=== PATIENT | male | born 2000 | race Caucasian/White ===

== ENCOUNTER 2019-08-28 20:12 | Emergency (ER) | payer OTHER, MEDICAID, SELFPAY ==
[2019-08-28 20:15] VITALS: BP 132/91; PULSE 72; RESP 20; TEMP 36.9; O2SAT 100
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
[2019-08-28] MEDS: Ondansetron O.D.T. 4 MG TABEF PO (20:39)
[2019-08-28] MEDS: Ibuprofen 600 MG TAB PO (20:40)
[2019-08-28] MEDS: Lidocaine/Epinephri/Tetracaine Topical Gel 3 ML TP (20:40)
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
[2019-08-28 21:37] VITALS: BP 132/91; PULSE 72; RESP 20; TEMP 36.9; O2SAT 100
== END 2019-08-28 21:38 | disposition home or self-care (01) ==
PROVIDERS: Emergency Provider Registered Nurse Emergency; PCP Nurse Practitioner Family
DX: S01.01XA Laceration without foreign body of scalp, initial encounter (principal); M25.561 Pain in right knee; S30.810A Abrasion of lower back and pelvis, initial encounter; S60.511A Abrasion of right hand, initial encounter; Y04.0XXA Assault by unarmed brawl or fight, initial encounter; R11.0 Nausea
CPT/HCPCS: 12001; 73562; 99284; 70450; 99283

== ENCOUNTER 2019-09-19 11:19 | Outpatient (REF) | payer OTHER, MEDICAID, SELFPAY ==
[2019-09-22 11:41] LABS: COVID-19 RT-PCR Result Not Detected (NotDetected)
== END 2019-09-19 11:39 ==
LOC: NCHCN 11:19
PROVIDERS: PCP Nurse Practitioner Family; Visit Provider Nurse Practitioner Family
DX: Z20.828 Contact with and (suspected) exposure to other viral communicable diseases (principal); R50.9 Fever, unspecified
CPT/HCPCS: U0003

== ENCOUNTER 2020-03-15 15:07 | Outpatient (REF) | payer MEDICAID, SELFPAY ==
[2020-03-18 17:41] LABS: Patient Race White; SARS-CoV-2 RNA Undetected (Undetected); SARS-CoV-2 Specimen Source Nasal
== END 2020-03-15 15:27 ==
LOC: NCHCN 15:07
PROVIDERS: PCP Nurse Practitioner Family; Visit Provider Nurse Practitioner Family
DX: R50.9 Fever, unspecified (principal)
CPT/HCPCS: U0003

== ENCOUNTER 2020-08-28 03:58 | Outpatient (CLI) | payer MEDICAID, SELFPAY ==
[2020-08-28 08:15] LABS: ALT 81 U/L (16-63); AST 25 U/L (15-37); Albumin 4.3 g/dL (3.4-5.0); Alkaline Phosphatase 65 U/L (46-116); BUN 16 mg/dL (7-18); Bilirubin, Total 0.6 mg/dL (0.2-1.0); CREATININE 0.8 mg/dL (0.70-1.30); Calcium 9.8 mg/dL (8.5-10.1); Chloride 102 mmol/L (98-107); Cholesterol 135 mg/dL (<200); Glucose 78 mg/dL (74-106); HDL Cholesterol 60 mg/dL (40-60); Potassium 4.6 mmol/L (3.5-5.1); Sodium 140 mmol/L (136-145); Total Protein 7.4 g/dL (6.4-8.2)
[2020-08-28 08:18] LABS: Triglyceride < 25 mg/dL (<150)
[2020-08-28 08:29] LABS: LDL CHOLESTEROL 71 mg/dL (<100)
== END 2020-08-28 03:59 | disposition home or self-care (01) ==
LOC: LBO 03:58
PROVIDERS: Internal Medicine Endocrinology, Diabetes & Metabolism; PCP Nurse Practitioner Family
DX: F64.0 Transsexualism (principal)
CPT/HCPCS: 36415; 80053; 80061; 83721

== ENCOUNTER 2021-01-15 15:43 | Outpatient (REF) | payer MEDICAID, SELFPAY ==
[2021-01-15 18:19] LABS: Abs Immature Grans 0.04 10^3/uL (0.0-0.06); Absolute Basophil Count 0.04 10^3/uL (0.0-0.2); Absolute Eosinophil Count 0.31 10^3/uL (0.0-0.7); Absolute Lymphocyte Count 2.16 10^3/uL (1.2-3.4); Absolute Monocyte Count 0.92 10^3/uL (0.1-0.8); Absolute Neutrophil Count 3.62 10^3/uL (1.2-6.7); Basophils % 0.6; Eosinophils % 4.4; HCT 35.7 % (40.0-50.0); HGB 12.9 g/dL (13.5-17.5); Immature Grans % 0.6; Lymphocytes % 30.5; MCH 33.3 pg (27.0-33.0); MCHC 36.1 % (32.0-36.0); MCV 92.2 fL (80-95); MPV 10.3 fL (8.0-11.0); Neutrophils % 50.9; Nucleated RBC 0 %; Platelet Count 167 10^3/uL (130-400); RBC 3.87 10^6/uL (4.36-5.78); RDW 12.4 % (11.8-14.1); RDW-SD 41.4 fL; WBC 7.09 10^3/uL (4.4-10.8)
[2021-01-15 18:41] LABS: Vitamin B12 582 pg/mL (193-986)
== END 2021-01-15 15:44 | disposition home or self-care (01) ==
LOC: LBN 15:43
PROVIDERS: PCP Nurse Practitioner Family; Visit Provider Nurse Practitioner Family
DX: F31.81 Bipolar II disorder (principal); F64.0 Transsexualism; Z59.9 Problem related to housing and economic circumstances, unspecified
CPT/HCPCS: 82607; 84443; 85025

== ENCOUNTER 2021-01-17 03:07 | Outpatient (CLI) | payer MEDICAID, SELFPAY ==
[2021-01-22 14:48] LABS: Testosterone, Total 383 ng/dL (240-950)
== END 2021-01-17 03:08 | disposition home or self-care (01) ==
LOC: LBO 03:07
PROVIDERS: PCP Nurse Practitioner Family; Visit Provider Internal Medicine Endocrinology, Diabetes & Metabolism
DX: F64.0 Transsexualism (principal)
CPT/HCPCS: 36415; 84403

== ENCOUNTER 2021-04-16 04:31 | Outpatient (CLI) | payer MEDICAID, SELFPAY ==
[2021-04-22 01:42] LABS: Testosterone, Total 155 ng/dL (240-950)
== END 2021-04-16 04:32 | disposition home or self-care (01) ==
LOC: LBO 04:31
PROVIDERS: Internal Medicine Endocrinology, Diabetes & Metabolism; PCP Nurse Practitioner Family
DX: Z79.899 Other long term (current) drug therapy (principal)
CPT/HCPCS: 36415; 84403

== ENCOUNTER 2021-05-28 02:31 | Outpatient (CLI) | payer MEDICAID, SELFPAY ==
[2021-05-28 10:39] LABS: Lithium 1.2 mmol/l (0.6-1.2)
[2021-05-28 10:47] LABS: Albumin 4.1 g/dL (3.4-5.0); Anion Gap 6.7 mmol/L (3-11); BUN 16 mg/dL (7-18); CO2 28.3 mmol/L (21.0-32.0); CREATININE 0.9 mg/dL (0.70-1.30); Calcium 9.4 mg/dL (8.5-10.1); Chloride 100 mmol/L (98-107); Glucose 78 mg/dL (74-106); Potassium 4.3 mmol/L (3.5-5.1); Sodium 135 mmol/L (136-145); TSH (W/Ref FT4) 3.92 uIU/mL (0.36-3.74)
[2021-05-28 11:05] LABS: FREE T4 1.33 ng/dL (0.76-1.46)
[2021-05-28 17:08] LABS: Estradiol 233 pg/mL (<40)
== END 2021-05-28 02:32 | disposition home or self-care (01) ==
LOC: LBO 02:31
PROVIDERS: Internal Medicine Endocrinology, Diabetes & Metabolism; PCP Nurse Practitioner Family; Visit Provider Nurse Practitioner Family
DX: Z79.890 Hormone replacement therapy (principal); F64.0 Transsexualism; F42.2 Mixed obsessional thoughts and acts; F31.81 Bipolar II disorder
CPT/HCPCS: 36415; 80069; 80178; 82670; 84439; 84443

== ENCOUNTER 2021-06-27 04:04 | Outpatient (CLI) | payer MEDICAID, SELFPAY ==
[2021-06-27 13:33] LABS: Lithium 0.6 mmol/l (0.6-1.2)
[2021-06-27 13:47] LABS: TSH (W/Ref FT4) 1.37 uIU/mL (0.36-3.74)
[2021-06-28 11:06] LABS: Albumin 3.9 g/dL (3.4-5.0); Anion Gap 7.8 mmol/L (3-11); BUN 15 mg/dL (7-18); CO2 30.2 mmol/L (21.0-32.0); CREATININE 0.9 mg/dL (0.70-1.30); Calcium 9.2 mg/dL (8.5-10.1); Chloride 103 mmol/L (98-107); Glucose 80 mg/dL (74-106); PHOSPHORUS 3.8 mg/dL (2.6-4.7); Sodium 141 mmol/L (136-145)
== END 2021-06-27 04:05 | disposition home or self-care (01) ==
LOC: LBO 04:05
PROVIDERS: PCP Nurse Practitioner Family; Visit Provider Nurse Practitioner Family
DX: F31.81 Bipolar II disorder (principal); F42.2 Mixed obsessional thoughts and acts; F64.0 Transsexualism
CPT/HCPCS: 36415; 80069; 80076; 80178; 84443

== ENCOUNTER 2021-06-29 10:56 | Emergency (ER) | payer MEDICAID, SELFPAY ==
[2021-06-29 11:03] VITALS: BP 112/69; PULSE 84; RESP 18; TEMP 36.6; O2SAT 100
[2021-06-29 11:30] LABS: Abs Immature Grans 0.02 10^3/uL (0.0-0.06); Absolute Basophil Count 0.05 10^3/uL (0.0-0.2); Absolute Eosinophil Count 0.21 10^3/uL (0.0-0.7); Absolute Lymphocyte Count 2.35 10^3/uL (1.2-3.4); Absolute Monocyte Count 0.89 10^3/uL (0.1-0.8); Absolute Neutrophil Count 5.79 10^3/uL (1.2-6.7); Basophils % 0.5; Eosinophils % 2.3; HGB 14.3 g/dL (13.5-17.5); Immature Grans % 0.2; Lymphocytes % 25.2; MCH 31.8 pg (27.0-33.0); MCHC 34.9 % (32.0-36.0); MCV 91.1 fL (80-95); MPV 9.9 fL (8.0-11.0); Monocytes % 9.6; Neutrophils % 62.2; Nucleated RBC 0 %; Platelet Count 276 10^3/uL (130-400); WBC 9.31 10^3/uL (4.4-10.8)
[2021-06-29 11:34] VITALS: RESP 17
[2021-06-29 11:44] LABS: ALT 19 U/L (16-63); AST 12 U/L (15-37); Albumin 3.8 g/dL (3.4-5.0); Alkaline Phosphatase 38 U/L (46-116); Anion Gap 6.7 mmol/L (3-11); BUN 13 mg/dL (7-18); Bilirubin, Total 0.3 mg/dL (0.2-1.0); CO2 27.3 mmol/L (21.0-32.0); CREATININE 0.9 mg/dL (0.70-1.30); Chloride 105 mmol/L (98-107); Glucose 88 mg/dL (74-106); Lipase 107 U/L (73-393); Potassium 3.8 mmol/L (3.5-5.1); Sodium 139 mmol/L (136-145); Total Protein 7.3 g/dL (6.4-8.2)
[2021-06-29 12:10] LABS: Bilirubin Negative (Negative); Blood Negative (Negative); Clarity Clear (Clear); Glucose Negative (Negative); Ketones Trace mg/dL (Negative); Leukocyte Esterase Negative (Negative); Nitrite Negative (Negative); Specific Gravity 1.025 (1.005-1.025); Urobilinogen 0.2 EU/dL (Up TO 0.2)
--- NOTE | 2021-06-29 12:14 | ED.GENADUL_ITS ---
Discharge Plan Disposition Patient Disposition: HOME Condition: Improving Discharge Details Clinical Impression: Change of skin color Primary Care Provider: Isabell Inman ED Provider: Santos Heck Home Meds and New Rx's Prescriptions: Continued trazodone 50 mg tablet 50 mg PO DAILY Qty: 30 RF: 1 propranolol 20 mg tablet 20 mg PO Q3H PRN Qty: 90 RF: 0 fluvoxamine 50 mg tablet 100 mg PO HS Qty: 60 RF: 1 spironolactone 100 mg tablet 200 mg PO DAILY RF: 0 lithium carbonate 300 mg tablet extended release 600 mg PO DAILY RF: 0 estradiol 2 mg tablet 4 mg PO DAILY RF: 0 Discharge Instructions Additional Instructions: Your laboratory values did not reveal any obvious emergent process. It would appear as though your discolored skin is secondary to a lotion or bronze or you have been using as comes off with scrubbing. I recommend going home, taking a thorough shower and getting the discoloration off of your skin. Please be more aware of the lotions that you may be using. Watch for new or worsening symptoms and return to the ER for any concerns. Discharge Data Discharge Date/Time-TO BE ENTERED AT DEPARTURE: 06/29/21 12:28 Medical Decision Making 20-year-old patient presents for concern of skin discoloration. Clinically this appears to be secondary to a bronzing agent. Given the concern of liver function, will obtain routine laboratory values. While obtaining IV access and prepping of the skin, the vast majority of the pigmentation in the area was removed on the alcohol pad. I brought this to the attention of the patient. Patient then tried to clean the majority of the pigmentation off of their forearms and hands and was successful. Feels that this is likely secondary to a lotion or bronzing agent, patient is unsure of what lotion they are currently using we will obtain laboratory values already planned but extremely low suspicion for acute pathology. Findings today are not consistent with jaundice. Laboratory values were unremarkable for obvious emergent process. Discussed labs with patient. Patient is relieved and has no additional questions or c oncerns, comfortable with discharge. Standard discharge and return precautions provided This documentation was generated using Audioscribeation system, please disregard any oddities of phrase or misspellings. Medical Records Medical records reviewed: Yes I reviewed the patient's medical records. Lab Data Lab results reviewed: Yes I reviewed the patient's lab results. Labs: Laboratory Tests Range/Units 06/29/21 06/29/21 06/29/21 11:08 11:08 11:08 WBC (4.4-10.8) 10^3/uL 9.31 RBC (4.36-5.78) 10^6/uL 4.50 Hgb (13.5-17.5) g/dL 14.3 Hct (40.0-50.0) % 41.0 MCV (80-95) fL 91.1 MCH (27.0-33.0) pg 31.8 MCHC (32.0-36.0) % 34.9 RDW (11.8-14.1) % 12.0 Plt Count (130-400) 10^3/uL 276 MPV (8.0-11.0) fL 9.9 Immature Gran % 0.2 Neutrophils % 62.2 Lymphocytes % 25.2 Monocytes % 9.6 Eosinophils % 2.3 Basophils % 0.5 Nucleated RBC % % 0 Absolute Neutrophils (1.2-6.7) 10^3/uL 5.79 Absolute Lymphocytes (1.2-3.4) 10^3/uL 2.35 Absolute Monocytes (0.1-0.8) 10^3/uL 0.89 H Absolute Eosinophils (0.0-0.7) 10^3/uL 0.21 Absolute Basophils (0.0-0.2) 10^3/uL 0.05 Sodium (136-145) mmol/L 139 Potassium (3.5-5.1) mmol/L 3.8 Chloride (98-107) mmol/L 105 Carbon Dioxide (21.0-32.0) mmol/L 27.3 Anion Gap (3-11) mmol/L 6.7 BUN (7-18) mg/dL 13 Creatinine (0.70-1.30) mg/dL 0.9 Estimated GFR/1.73 m2 (mL/min/1.73m2) >= 60.00 Glucose (74-106) mg/dL 88 Calcium (8.5-10.1) mg/dL 9.0 Total Bilirubin (0.2-1.0) mg/dL 0.3 AST (15-37) U/L 12 L ALT (16-63) U/L 19 Alkaline Phosphatase (46-116) U/L 38 L Total Protein (6.4-8.2) g/dL 7.3 Albumin (3.4-5.0) g/dL 3.8 Lipase (73-393) U/L 107 Cancelled Urine Color (Yellow) Urine Clarity (Clear) Urine pH (5-8) Ur Specific [place] (1.005-1.025) Urine Protein (Negative) mg/dL Urine Ketones (Negative) mg/dL Urine Blood (Negative) Urine Nitrite (Negative) Urine Bilirubin (Negative) Urine Urobilinogen (Up TO 0.2) EU/dL Ur Leukocyte Esterase (Negative) Urine Glucose (Negative) mg/dL Range/Units 06/29/21 11:29 WBC (4.4-10.8) 10^3/uL RBC (4.36-5.78) 10^6/uL Hgb (13.5-17.5) g/dL Hct (40.0-50.0) % MCV (80-95) fL MCH (27.0-33.0) pg MCHC (32.0-36.0) % RDW (11.8-14.1) % Plt Count (130-400) 10^3/uL MPV (8.0-11.0) fL Immature Gran % Neutrophils % Lymphocytes % Monocytes % Eosinophils % Basophils % Nucleated RBC % % Absolute Neutrophils (1.2-6.7) 10^3/uL Absolute Lymphocytes (1.2-3.4) 10^3/uL Absolute Monocytes (0.1-0.8) 10^3/uL Absolute Eosinophils (0.0-0.7) 10^3/uL Absolute Basophils (0.0-0.2) 10^3/uL Sodium (136-145) mmol/L Potassium (3.5-5.1) mmol/L Chloride (98-107) mmol/L Carbon Dioxide (21.0-32.0) mmol/L Anion Gap (3-11) mmol/L BUN (7-18) mg/dL Creatinine (0.70-1.30) mg/dL Estimated GFR/1.73 m2 (mL/min/1.73m2) Glucose (74-106) mg/dL Calcium (8.5-10.1) mg/dL Total Bilirubin (0.2-1.0) mg/dL AST (15-37) U/L ALT (16-63) U/L Alkaline Phosphatase (46-116) U/L Total Protein (6.4-8.2) g/dL Albumin (3.4-5.0) g/dL Lipase (73-393) U/L Urine Color (Yellow) Yellow Urine Clarity (Clear) Clear Urine pH (5-8) 7.0 Ur Specific [place] (1.005-1.025) 1.025 Urine Protein (Negative) mg/dL Negative Urine Ketones (Negative) mg/dL Trace H Urine Blood (Negative) Negative Urine Nitrite (Negative) Negative Urine Bilirubin (Negative) Negative Urine Urobilinogen (Up TO 0.2) EU/dL 0.2 Ur Leukocyte Esterase (Negative) Negative Urine Glucose (Negative) mg/dL Negative HPI General Mode of arrival: ambulatory . Date/Time Provider Initiated Documentation: 06/29/21 11:00 . Limitations to Documentation: no limitations . Information obtained by: patient . HPI Narrative: This is a 20-year-old biological male who is transitioning to a female, past medical history including anxiety, depression, presenting to the ER today for evaluation of skin discoloration over the past 4 days. Noticed a little tingling or irritation to the bilateral forearms and hands over the past 2 days. Denies recent illness or trauma. Patient patient is concerned about their liver function. No additional questions or concerns at this time. Denies using any new skin lotions or skin bronzing agents. Related Data Home Medications Medication Instructions Recorded Confirmed trazodone 50 mg tablet 50 mg PO DAILY #30 tab-cap 03/28/18 06/29/21 propranolol 20 mg tablet 20 mg PO Q3H PRN #90 tab 05/06/18 06/29/21 fluvoxamine 50 mg tablet 100 mg PO HS #60 tab 05/16/18 06/29/21 estradiol 4 mg PO DAILY 06/29/21 06/29/21 lithium carbonate 600 mg PO DAILY 06/29/21 06/29/21 spironolactone 200 mg PO DAILY 06/29/21 06/29/21 Previous Rx's Medication Instructions Recorded trazodone 50 mg tablet 50 mg PO DAILY #30 tab-cap 03/28/18 propranolol 20 mg tablet 20 mg PO Q3H PRN #90 tab 05/06/18 fluvoxamine 50 mg tablet 100 mg PO HS #60 tab 05/16/18 Allergies Allergy/AdvReac Type Severity Reaction Status Date / Time egg yolk Allergy Intermediate VOMITING Verified 06/29/21 11:10 General Stated Complaint: GenMedical VICTOR HUGO: 3 Review of Systems Constitutional Constitutional: Denies fever(s) and Denies weakness Cardiovascular Cardiovascular: Denies chest pain and Denies dyspnea Respiratory Respiratory: Denies cough and Denies dyspnea Gastrointestinal Gastrointestinal: Denies abdominal pain, Denies nausea and Denies vomiting Musculoskeletal Musculoskeletal: Denies numbness and Reports tingling Integumentary/Breasts Skin/Breast: Reports other (Discoloration) Neurologic Neurologic: Denies numbness, Reports tingling and Denies weakness Psychiatric Psychiatric: Reports anxiety PFSH All Active Problems Change of skin color (Acute) Depression (Chronic) doing well on current meds [facility] [employer] brochure provided and discussed - encouraged pt to contact re financial/transportation issues re food insecurity - hand out provided/discussed re local resources Medical History Anxiety Depression Insomnia Wears glasses Surgical History Tooth extraction extraction 4 wisdom teeth Family History Mother Mental disorder anxiety/depression Father Alcohol abuse Healthy adult Other Diabetes PGF Alcohol abuse MGF, MGM Essential hypertension PGF Bipolar disorder PGM Mental disorder Myocardial infarction PGF Social History Smoking/Tobacco Use Status: Never Smoking risk assessment performed?: Yes Alcohol Intake: never Drug use: Occasionally Substance use type: marijuana Do you feel safe at home: Yes Do you feel safe in your relationship?: Yes Exam Const General: cooperative, healthy appearing, comfortable and no acute distress Orientation: alert and awake [facility] Head: normal to inspection, normocephalic and atraumatic Face and sinus: normal facial exam Mouth: moist mucous membranes Eyes General: appearance normal, both eyes and all related structures Conjunctivae: conjunctivae normal Other: No scleral icterus Neck Neck: normal visual inspection, full ROM, trachea midline and supple Resp Effort & Inspection: normal respiratory effort and able to speak in complete sentences Auscultation: clear to auscultation bilaterally Cardio Rate: regular rate Rhythm: regular rhythm GI Palpation: soft and nontender Back/Spine/Pelvis Back: No back tenderness Skin Other: Patient with a bronzing pigmentation, highest concentration of bilateral hands. There is a smaller concentration to bilateral arms, across most upper back but in a horizontal bandlike distribution around the thoracic spine, there is no pigmentation. There is minimal pigmentation also to the abdomen and lower extremities although in less concentration. The face is spared. Neuro General: patient alert, patient awake, moves all extremities and no focal motor deficits Cognition: normal cognition Speech: speech normal Gait: normal gait Sensory Exam: no sensory deficits noted Extrem General: normal to inspection, full ROM and capillary refill normal Psych Appearance: grossly normal Mental Status: mental status grossly normal Course Vital Signs Vital signs: Vital Signs Temperature 36.6 C 06/29/21 11:03 Pulse 84 06/29/21 11:03 Respiratory Rate 18 06/29/21 11:03 Blood Pressure 112/69 06/29/21 11:03 Pulse Oximetry 100 06/29/21 11:03 Temperature 36.6 C 06/29/21 11:03 Temperature Source Temporal Artery Scan 06/29/21 11:03 Pulse 84 06/29/21 11:03 Respiratory Rate 17 06/29/21 11:34 Respiratory Effort Non-Labored 06/29/21 11:34 Respiratory Depth Normal 06/29/21 11:34 Blood Pressure 112/69 06/29/21 11:03 Blood Pressure Position Sitting 06/29/21 11:03 Pulse Oximetry 100 06/29/21 11:03 Oxygen Delivery Method Room Air 06/29/21 11:03 Oxygen Flow Rate 0 06/29/21 11:03 Pain Level 0 06/29/21 11:03 Lab/Test Results Lab/Test Results: Laboratory Tests Range/Units 06/29/21 06/29/21 06/29/21 11:08 11:08 11:08 WBC (4.4-10.8) 10^3/uL 9.31 RBC (4.36-5.78) 10^6/uL 4.50 Hgb (13.5-17.5) g/dL 14.3 Hct (40.0-50.0) % 41.0 MCV (80-95) fL 91.1 MCH (27.0-33.0) pg 31.8 MCHC (32.0-36.0) % 34.9 RDW (11.8-14.1) % 12.0 Plt Count (130-400) 10^3/uL 276 MPV (8.0-11.0) fL 9.9 Immature Gran % 0.2 Neutrophils % 62.2 Lymphocytes % 25.2 Monocytes % 9.6 Eosinophils % 2.3 Basophils % 0.5 Nucleated RBC % % 0 Absolute Neutrophils (1.2-6.7) 10^3/uL 5.79 Absolute Lymphocytes (1.2-3.4) 10^3/uL 2.35 Absolute Monocytes (0.1-0.8) 10^3/uL 0.89 H Absolute Eosinophils (0.0-0.7) 10^3/uL 0.21 Absolute Basophils (0.0-0.2) 10^3/uL 0.05 Sodium (136-145) mmol/L 139 Potassium (3.5-5.1) mmol/L 3.8 Chloride (98-107) mmol/L 105 Carbon Dioxide (21.0-32.0) mmol/L 27.3 Anion Gap (3-11) mmol/L 6.7 BUN (7-18) mg/dL 13 Creatinine (0.70-1.30) mg/dL 0.9 Estimated GFR/1.73 m2 (mL/min/1.73m2) >= 60.00 Glucose (74-106) mg/dL 88 Calcium (8.5-10.1) mg/dL 9.0 Total Bilirubin (0.2-1.0) mg/dL 0.3 AST (15-37) U/L 12 L ALT (16-63) U/L 19 Alkaline Phosphatase (46-116) U/L 38 L Total Protein (6.4-8.2) g/dL 7.3 Albumin (3.4-5.0) g/dL 3.8 Lipase (73-393) U/L 107 Cancelled Urine Color (Yellow) Urine Clarity (Clear) Urine pH (5-8) Ur Specific [place] (1.005-1.025) Urine Protein (Negative) mg/dL Urine Ketones (Negative) mg/dL Urine Blood (Negative) Urine Nitrite (Negative) Urine Bilirubin (Negative) Urine Urobilinogen (Up TO 0.2) EU/dL Ur Leukocyte Esterase (Negative) Urine Glucose (Negative) mg/dL Range/Units 06/29/21 11:29 WBC (4.4-10.8) 10^3/uL RBC (4.36-5.78) 10^6/uL Hgb (13.5-17.5) g/dL Hct (40.0-50.0) % MCV (80-95) fL MCH (27.0-33.0) pg MCHC (32.0-36.0) % RDW (11.8-14.1) % Plt Count (130-400) 10^3/uL MPV (8.0-11.0) fL Immature Gran % Neutrophils % Lymphocytes % Monocytes % Eosinophils % Basophils % Nucleated RBC % % Absolute Neutrophils (1.2-6.7) 10^3/uL Absolute Lymphocytes (1.2-3.4) 10^3/uL Absolute Monocytes (0.1-0.8) 10^3/uL Absolute Eosinophils (0.0-0.7) 10^3/uL Absolute Basophils (0.0-0.2) 10^3/uL Sodium (136-145) mmol/L Potassium (3.5-5.1) mmol/L Chloride (98-107) mmol/L Carbon Dioxide (21.0-32.0) mmol/L Anion Gap (3-11) mmol/L BUN (7-18) mg/dL Creatinine (0.70-1.30) mg/dL Estimated GFR/1.73 m2 (mL/min/1.73m2) Glucose (74-106) mg/dL Calcium (8.5-10.1) mg/dL Total Bilirubin (0.2-1.0) mg/dL AST (15-37) U/L ALT (16-63) U/L Alkaline Phosphatase (46-116) U/L Total Protein (6.4-8.2) g/dL Albumin (3.4-5.0) g/dL Lipase (73-393) U/L Urine Color (Yellow) Yellow Urine Clarity (Clear) Clear Urine pH (5-8) 7.0 Ur Specific [place] (1.005-1.025) 1.025 Urine Protein (Negative) mg/dL Negative Urine Ketones (Negative) mg/dL Trace H Urine Blood (Negative) Negative Urine Nitrite (Negative) Negative Urine Bilirubin (Negative) Negative Urine Urobilinogen (Up TO 0.2) EU/dL 0.2 Ur Leukocyte Esterase (Negative) Negative Urine Glucose (Negative) mg/dL Negative
[2021-06-29 12:26] VITALS: RESP 17
== END 2021-06-29 12:28 | disposition home or self-care (01) ==
PROVIDERS: Emergency Provider Physician Assistant; PCP Nurse Practitioner Family
DX: R23.8 Other skin changes (principal)
CPT/HCPCS: 80053; 83690; 99283; 81003; 85025; 99282

== ENCOUNTER 2021-08-14 01:47 | Outpatient (CLI) | payer MEDICAID, SELFPAY ==
[2021-08-14 13:22] LABS: ALT 18 U/L (16-63); AST 12 U/L (15-37); Albumin 4.4 g/dL (3.4-5.0); Alkaline Phosphatase 39 U/L (46-116); Anion Gap 9.3 mmol/L (3-11); BUN 16 mg/dL (7-18); Bilirubin, Total 0.4 mg/dL (0.2-1.0); CO2 26.7 mmol/L (21.0-32.0); CREATININE 0.9 mg/dL (0.70-1.30); Calcium 9.9 mg/dL (8.5-10.1); Chloride 100 mmol/L (98-107); Glucose 78 mg/dL (74-106); Potassium 4.1 mmol/L (3.5-5.1); Sodium 136 mmol/L (136-145)
[2021-08-14 22:23] LABS: Estradiol 197 pg/mL (<40)
[2021-08-20 15:07] LABS: Testosterone, Total 15 ng/dL (240-950)
== END 2021-08-14 01:48 | disposition home or self-care (01) ==
LOC: LBO 01:47
PROVIDERS: PCP Nurse Practitioner Family; Visit Provider Internal Medicine Endocrinology, Diabetes & Metabolism
DX: R17 Unspecified jaundice (principal); Z79.890 Hormone replacement therapy
CPT/HCPCS: 36415; 80053; 84403; 82670

== ENCOUNTER 2022-02-28 19:50 | Emergency (ER) | payer MEDICAID, SELFPAY ==
[2022-02-28 19:56] VITALS: BP 132/73; PULSE 94; RESP 18
--- NOTE | 2022-02-28 20:24 | ED.GENADUL_ITS ---
Discharge Plan Disposition Patient Disposition: HOME Condition: Good Discharge Details Clinical Impression: Constipation Primary Care Provider: Isabell Inman ED Provider: Nacho Yao Home Meds and New Rx's Prescriptions: New magnesium citrate Solution 150 ml PO ONCE Qty: 296 0RF Rx Instructions: as a single dose No Action trazodone 50 mg tablet 50 mg PO DAILY Qty: 30 1RF Rx Instructions: take 1 tablet once a day propranolol 20 mg tablet 20 mg PO Q3H PRN Qty: 90 0RF Rx Instructions: Take 1 tablet by mouth every evening and may take 1 tablet every 3 hours as needed for anxiety. spironolactone 100 mg tablet 200 mg PO DAILY Label Comments: TAKE 1/2 TABLET BY MOUTH DAILY FOR 2 WEEKS. THEN 1 TABLET DAILY FOR 2 WEEKS. THEN 1 AND 1/2 TABLETS DAILY FOR 2 WEEKS. THEN TAKE ONE TABLET lithium carbonate 300 mg tablet extended release 600 mg PO DAILY Label Comments: TAKE THREE TABLETS BY MOUTH EVERY DAY DIRECTED estradiol 2 mg tablet 4 mg PO DAILY Label Comments: TAKE TWO TABLETS BY MOUTH EVERY DAY fluvoxamine 50 mg tablet 125 mg PO BID Rx Instructions: Take 2 tablets by mouth every evening at bedtime. Discharge Instructions Instructions: Constipation (ED) Additional Instructions: Please take the magnesium citrate tomorrow morning. Please drink 6 cups of water, juice or electrolyte solution with this to help with lubrication. Please expect a significant amount of cramping as your body extricates the stool. Moving forward, please drink plenty of fluids throughout the day to stay well- hydrated, take an [id number] Colace stool softener every day, and take a few prunes to maintain stool softeners. If you notice any worsening of your symptoms, or any new symptoms such as vomiting, diarrhea, fever, chills, shortness of breath, chest pain, numbness, weakness, or fainting , please return immediately to the emergency department for reevaluation. Please follow up with your primary care provider as soon as possible for reassessment and reevaluation. As always, it was a pleasure participating in your medical care today. Referrals: Isabell Inman [Primary Care Provider] - Medical Decision Making This is a 21-year-old individual with a past medical history of anxiety, depression, wisdom teeth removal, and estrogen transition to female, who presents today for evaluation of constipation. Patient states that all of her life she has had some mild issues with bowel movements, however over the last week or 2 she has noticed increased bloating, generalized abdominal discomfort, and had some diarrhea about 5 or 6 days ago, then she has not had any bowel movements for the last 4 days. She is still passing gas. She did just restart on trazodone 4 days ago. She admits to nausea but no vomiting. She denies any blood in her stool. She denies any fever or chills. No urinary complaints. She has been taking fiber supplements but this has not been helping. Physical exam demonstrates a well appearing patient, no signs of acute distress. Minimal achiness in the left lower quadrant. No evidence of an acute surgical abdomen. Differential is highest for constipation. We will perform rectal exam, check UA, get basic labs, monitor closely and reassess. Exam rectal exam was performed with female nurse Montserrat at bedside. No evidence of stool in the rectal vault. No evidence of hard stool ball. 10:[address] scan is negative for acute process. White count slightly elevated at 13, however no bandemia. Patient otherwise notably stable. Renal function good, electrolytes normal. Patient feels well on reassessment shows no signs of acute surgical abdomen. Urinalysis negative. Patient is stable for discharge. CT scan does show evidence of constipation. We will give magnesium citrate for home use. Discussed red flags which return. I have extensively reviewed the treatment plan and discharge instructions with the patient. I have addressed all patient concerns at this time. The patient was made aware of what symptoms to monitor for that would warrant a return to the emergency department. Discussed the plan with the patient, they demonstrate verbal understanding and agreement with our assessment and plan at this time. The documentation in this chart was dictated using WikiWand dictation software. Please excuse any dictation errors. FINDINGS: Lungs: Lung bases clear. Liver: Normal appearing liver. Gallbladder and bile ducts: Gallbladder partially collapsed. No calcified gallstones seen. No biliary dilatation. Pancreas: Normal appearing pancreas. Spleen: Normal appearing spleen. Adrenal glands: Normal appearing adrenal glands. Kidneys and ureters: Normal appearing kidneys. No hydronephrosis. Stomach and bowel: No oral contrast. Stomach moderately distended with ingested material. No small bowel dilatation to suggest obstruction. Moderate retained fecal material in the colon. Distal sigmoid colon and rectum relatively well evacuated. No evidence of diverticulitis or colitis. Appendix: Normal appendix Intraperitoneal space: No gross ascites or free air. Vasculature: Normal caliber abdominal aorta. Lymph nodes: No pathologically enlarged mesenteric, retroperitoneal, or pelvic sidewall lymph nodes. Urinary bladder: Normal appearing urinary bladder. Reproductive: Normal-appearing prostate gland and seminal vesicles. Bones/joints: No acute fracture seen among the bones of the abdomen or pelvis. Soft tissues: No significant ventral or inguinal hernia. IMPRESSION: Moderate retained fecal material in the colon. Distal sigmoid colon and rectum relatively well evacuated. No evidence of diverticulitis or colitis. No acute bowel pathology demonstrated. Thank you for allowing us to participate in the care of your patient. Dictated and Authenticated by: Dereck Ariza MD 02/28/2022 9:57 PM Eastern Time ([place] & [place]) HPI General Date/Time Provider Initiated Documentation: 02/28/22 19:55 . HPI Narrative: This is a 21-year-old individual with a past medical history of anxiety, depression, wisdom teeth removal, and estrogen transition to female, who presents today for evaluation of constipation. Patient states that all of her life she has had some mild issues with bowel movements, however over the last week or 2 she has noticed increased bloating, generalized abdominal discomfort, and had some diarrhea about 5 or 6 days ago, then she has not had any bowel movements for the last 4 days. She is still passing gas. She did just restart on trazodone 4 days ago. She admits to nausea but no vomiting. She denies any blood in her stool. She denies any fever or chills. No urinary complaints. She has been taking fiber supplements but this has not been helping. Related Data Home Medications Medication Instructions Recorded Confirmed trazodone 50 mg tablet 50 mg PO DAILY #30 tab-caps 03/28/18 02/28/22 propranolol 20 mg tablet 20 mg PO Q3H PRN #90 tabs 05/06/18 06/29/21 estradiol 2 mg tablet 4 mg PO DAILY 06/29/21 02/28/22 lithium carbonate 300 mg 600 mg PO DAILY 06/29/21 02/28/22 tablet,extended release spironolactone 100 mg tablet 200 mg PO DAILY 06/29/21 02/28/22 fluvoxamine 50 mg tablet 125 mg PO BID 02/28/22 02/28/22 magnesium citrate 150 ml PO ONCE #296 mL 02/28/22 Previous Rx's Medication Instructions Recorded trazodone 50 mg tablet 50 mg PO DAILY #30 tab-caps 03/28/18 propranolol 20 mg tablet 20 mg PO Q3H PRN #90 tabs 05/06/18 magnesium citrate 150 ml PO ONCE #296 mL 02/28/22 Allergies Allergy/AdvReac Type Severity Reaction Status Date / Time egg yolk Allergy Intermediate VOMITING Verified 06/29/21 11:10 General Stated Complaint: Abd Prob VICTOR HUGO: 3 Review of Systems All systems reviewed & are unremarkable except as noted in HPI and below PFSH All Active Problems (Updated 02/28/22 @ 22:11 by Nacho Yao DO) Constipation (Acute) Depression (Chronic) doing well on current meds [employer] brochure provided and discussed - encouraged pt to contact re financial/transportation issues re food insecurity - hand out provided/discussed re local resources Medical History (Updated 02/28/22 @ 22:11 by Nacho Yao DO) Anxiety Depression Insomnia Wears glasses Surgical History Tooth extraction extraction 4 wisdom teeth Family History Mother Mental disorder anxiety/depression Father Alcohol abuse Healthy adult Other Diabetes PGF Alcohol abuse MGF, MGM Essential hypertension PGF Bipolar disorder PGM Mental disorder Myocardial infarction PGF Social History Smoking/Tobacco Use Status: Never Smoking risk assessment performed?: Yes Alcohol Intake: never Drug use: Occasionally Substance use type: marijuana Details: Marajuana use for pain management Do you feel safe at home: Yes Do you feel safe in your relationship?: Yes Exam Narrative Exam Narrative: 1.Const: Well-nourished, Well-developed, appearing stated age 2.Eyes: PERRL, no conjunctival injection, and symmetrical lids. 3.ENT: Atraumatic external nose and ears. Moist MM. Neck: Symmetric, trachea midline, No thyromegaly. 4.CVS: +S1/S2, No murmurs or gallops. Peripheral pulses 2+ and equal in all extremities. Brisk capillary refill in all extremities. 5.RESP: Unlabored respiratory effort. Clear to auscultation bilaterally. No wheezes rales or rhonchi 6.GI: Soft, Nontender/Nondistended, No hepatosplenomegaly. No guarding or rebound. Minimal achiness in the left lower quadrant. No guarding or rebound to suggest an acute surgical abdomen. No pain at McBurney's point. Negative Fields sign. 7.MSK: Normocephalic/Atraumatic, Extremities w/o deformity or ttp No cyanosis or clubbing, Normal movement of all extremities 8.Skin: Warm, Dry. No rashes or lesions. 9.Neuro: resource specialist teacher II-XII grossly intact. Sensation grossly intact, no focal neurologic deficits. 10.Psych: (AAO) x3. Appropriate mood and affect Course Vital Signs Vital signs: Vital Signs Pulse 94 H 02/28/22 19:56 Respiratory Rate 18 02/28/22 19:56 Blood Pressure 132/73 02/28/22 19:56 Temperature Source Oral 02/28/22 19:56 Pulse 94 H 02/28/22 19:56 Respiratory Rate 18 02/28/22 19:56 Blood Pressure 132/73 02/28/22 19:56 Oxygen Delivery Method Room Air 02/28/22 19:56 Oxygen Flow Rate 0 02/28/22 19:56 Pain Level 3 02/28/22 19:56 Comment 02/28/22 19:56
[2022-02-28 20:26] LABS: Bilirubin Negative (Negative); Blood Negative (Negative); Clarity Clear (Clear); Glucose Negative (Negative); Ketones Negative (Negative); Leukocyte Esterase Negative (Negative); Nitrite Negative (Negative); Urobilinogen 0.2 EU/dL (Up TO 0.2); pH 6.5 (5-8)
[2022-02-28 20:45] LABS: Abs Immature Grans 0.04 10^3/uL (0.0-0.06); Absolute Basophil Count 0.05 10^3/uL (0.0-0.2); Absolute Eosinophil Count 0.13 10^3/uL (0.0-0.7); Absolute Monocyte Count 0.78 10^3/uL (0.1-0.8); Basophils % 0.4; HCT 40.2 % (40.0-50.0); HGB 14.2 g/dL (13.5-17.5); Immature Grans % 0.3; Lymphocytes % 18.6; MCH 32.2 pg (27.0-33.0); MCHC 35.3 % (32.0-36.0); MCV 91 fL (80-95); MPV 8.7 fL (8.0-11.0); Monocytes % 5.8; Neutrophils % 73.9; Platelet Count 342 10^3/uL (130-400); RBC 4.41 10^6/uL (4.36-5.78); RDW 10.9 % (11.8-14.1); RDW-SD 36.6 fL; WBC 13.46 10^3/uL (4.4-10.8)
--- NOTE | 2022-02-28 20:45 | DI.CT_ITS ---
Exam(s) CT ABDOMEN PELVIS W EXAM: CT ABDOMEN PELVIS W CLINICAL HISTORY: LLQ pain, eval for diverticilitis. TECHNIQUE: Imaging Protocol: Axial computed tomography images with coronal and sagittal reformatted images were created and reviewed CONTRAST MATERIAL: Intravenous: Omnipaque 100cc Oral: None COMPARISON: No exams were available for comparison FINDINGS: VISUALIZED LUNG BASES: No nodules nor pleural effusions evident. ABDOMEN: There is no ascites. LIVER: There are no focal hepatic lesions evident . GALLBLADDER/BILIARY: No obvious gallbladder pathology. CBD is not dilated. PANCREAS: No evidence of pancreatic mass nor dilatation of the pancreatic duct. SPLEEN: Spleen is not enlarged. No obvious intrasplenic lesions. Splenic and portal veins are paten t. ADRENALS: There are no significant adrenal masses. KIDNEYS:No cysts evident. No solid renal masses. No calculi nor hydronephrosis.. ABDOMINAL AORTA: Abdominal aorta is not enlarged. LYMPH NODES:There is no retroperitoneal nor paraaortic adenopathy. ABDOMINAL WALL: No evidence of significant anterior abdominal wall nor inguinal hernia. GI: Moderate increased amount of fecal material in the colon, including the sigmoid. PELVIS: GI: Appendix diameter is 7.5 millimeters and the appendix appears slightly straightened. There is no periappendiceal streaking. No calcified appendicolith evident. No evidence of sigmoid diverticulit is. LYMPH NODES: There is no intrapelvic nor inguinal adenopathy. REPRODUCTIVE: Age-appropriate URINARY BLADDER: No calculi nor obvious masses evident OSSEOUS: No significant osseous lesions. IMPRESSION: 1. Appendix appears minimally prominent and slightly straightened. Recommend follow-up to rule out e freddy developing appendicitis. First read by [facility]. Report called by myself to ER physician 03/01/2022 RADIATION DOSE DELIVERED: 703.78mGy.cm Total DLP DATA REPOSITORY: All CT scans at this facility are submitted to the National Radiology Data Registry (NRDR) Dose Index Registry (DIR) with the [employer] (ACR). RADIATION OPTIMIZATION: All CT scans at this facility use at least one of these dose optimization te chniques: automated exposure control; mA and/or kV adjustment per patient size (includes targeted exa ms where dose is matched to clinical indication); or iterative reconstruction.
[2022-02-28 20:48] LABS: Absolute Neutrophil Count 9.95 10^3/uL (1.2-6.7)
[2022-02-28 21:05] LABS: ALT 19 U/L (16-63); AST 10 U/L (15-37); Alkaline Phosphatase 49 U/L (46-116); Anion Gap 4.8 mmol/L (3-11); BUN 21 mg/dL (7-18); Bilirubin, Total 0.2 mg/dL (0.2-1.0); CO2 31.2 mmol/L (21.0-32.0); CREATININE 1.1 mg/dL (0.70-1.30); Calcium 9.3 mg/dL (8.5-10.1); Chloride 99 mmol/L (98-107); Estimated GFR 96.74 (mL/min/1.73m2); Glucose 86 mg/dL (74-106); Lipase 166 U/L (73-393); Potassium 4.4 mmol/L (3.5-5.1); Sodium 135 mmol/L (136-145)
[2022-02-28] MEDS: Omnipaque 350 MG/ML 100 ML BTL IJ (21:08)
--- NOTE | 2022-02-28 21:58 | DI.VRAD_ITS ---
PROCEDURE INFORMATION: Exam: CT Abdomen And Pelvis With Contrast Exam date and time: 02/28/2022 9:09 PM Age: 21 years old Clinical indication: Abdominal pain; Localized; Left lower quadrant (llq); Patient HX: Llq pain x4 days progresivly worsening. TECHNIQUE: Imaging protocol: Computed tomography of the abdomen and pelvis with contrast. Radiation optimization: All CT scans at this facility use at least one of these dose optimization techniques: automated exposure control; mA and/or kV adjustment per patient size (includes targeted exams where dose is matched to clinical indication); or iterative reconstruction. Contrast material: OMNIPAQUE 350; Contrast volume: 90 ml; Contrast route: INTRAVENOUS (IV); COMPARISON: No relevant prior studies available. FINDINGS: Lungs: Lung bases clear. Liver: Normal appearing liver. Gallbladder and bile ducts: Gallbladder partially collapsed. No calcified gallstones seen. No biliary dilatation. Pancreas: Normal appearing pancreas. Spleen: Normal appearing spleen. Adrenal glands: Normal appearing adrenal glands. Kidneys and ureters: Normal appearing kidneys. No hydronephrosis. Stomach and bowel: No oral contrast. Stomach moderately distended with ingested material. No small bowel dilatation to suggest obstruction. Moderate retained fecal material in the colon. Distal sigmoid colon and rectum relatively well evacuated. No evidence of diverticulitis or colitis. Appendix: Normal appendix. Intraperitoneal space: No gross ascites or free air. Vasculature: Normal caliber abdominal aorta. Lymph nodes: No pathologically enlarged mesenteric, retroperitoneal, or pelvic sidewall lymph nodes. Urinary bladder: Normal appearing urinary bladder. Reproductive: Normal-appearing prostate gland and seminal vesicles. Bones/joints: No acute fracture seen among the bones of the abdomen or pelvis. Soft tissues: No significant ventral or inguinal hernia. IMPRESSION: Moderate retained fecal material in the colon. Distal sigmoid colon and rectum relatively well evacuated. No evidence of diverticulitis or colitis. No acute bowel pathology demonstrated. Dictated and Authenticated by: Dereck Ariza MD. Ordering:MALOU Griffith MD
[2022-02-28 22:13] VITALS: BP 96/52; PULSE 88; RESP 18; TEMP 36.9; O2SAT 98
--- NOTE | 2022-03-01 18:31 | W.ED.FU ---
Date of service: 03/01/22 Time of Service: 18:31 Follow Up Plan: Received a call from Dr. Reis, from radiology who is doing over reads of the CAT scans today. He questions straightening of the appendix and borderline dilatation. There is no surrounding inflammation on CT scan. The patient reports production of a bowel movement and feeling improved. No right lower quadrant abdominal pain and no fever. We discussed signs to be aware of in order to seek reevaluation.
== END 2022-02-28 22:30 | disposition home or self-care (01) ==
PROVIDERS: Emergency Provider Student in an Organized Health Care Education/Training Program; PCP Nurse Practitioner Family
DX: K59.00 Constipation, unspecified (principal); D72.829 Elevated white blood cell count, unspecified; R11.0 Nausea
CPT/HCPCS: 80053; 83690; 99285; 74177; 81003; 85025; 99282; J3490

== ENCOUNTER 2022-03-02 00:20 | Emergency (ER) | payer MEDICAID, SELFPAY ==
[2022-03-02 00:24] VITALS: BP 125/69; PULSE 67; RESP 22; TEMP 36.5; O2SAT 98
--- NOTE | 2022-03-02 00:30 | DI.CT_ITS ---
Exam(s) CT ABDOMEN PELVIS W EXAM: CT ABDOMEN PELVIS W CLINICAL HISTORY: ?appendicitis. TECHNIQUE: Imaging Protocol: Axial computed tomography images with coronal and sagittal reformatted images were created and reviewed CONTRAST MATERIAL: Intravenous: Omnipaque 100cc Oral: None COMPARISON: CT CT ABDOMEN PELVIS W from 02/28/2022 FINDINGS: VISUALIZED LUNG BASES: No nodules nor pleural effusions evident. ABDOMEN: There is no ascites. LIVER: There are no focal hepatic lesions evident . GALLBLADDER/BILIARY: No obvious gallbladder pathology. CBD is not dilated. PANCREAS: No evidence of pancreatic mass nor dilatation of the pancreatic duct. SPLEEN: Spleen is not enlarged. No obvious intrasplenic lesions. Splenic and portal veins are paten t. ADRENALS: There are no significant adrenal masses. KIDNEYS:No cysts evident. No solid renal masses. No calculi nor hydronephrosis.. ABDOMINAL AORTA: Abdominal aorta is not enlarged. LYMPH NODES:There is no retroperitoneal nor paraaortic adenopathy. ABDOMINAL WALL: No evidence of significant anterior abdominal wall nor inguinal hernia. GI: There is no evidence of bowel obstruction, free air, nor abscess. PELVIS: GI: The appendix contains hyperdense material throughout the length of its lumen. Appendiceal diamet er is upper normal. There is no surrounding inflammatory streaking. No lymphadenopathy evident in t he mesoappendix. LYMPH NODES: There is no intrapelvic nor inguinal adenopathy. REPRODUCTIVE: Prostate not enlarged. Seminal vesicles URINARY BLADDER: No calculi nor obvious masses evident OSSEOUS: No significant osseous lesions. No fractures. No sacroiliitis. IMPRESSION: 1. The appendiceal lumen contains hyperdense material throughout its length. However, the diameter o f the appendix is upper normal and there is no periappendiceal streaking. 2. I note the findings described on the virtual Radiology report with respect of the colon. Please n ote that there is no oral contrast within the bowel lumen. This makes accurate interpretation somewh at difficult with respect to subtle colitis pattern. Recommend referral for endoscopy/colonoscopy. 3. No evidence of bowel obstruction. No free air. No ascites. RADIATION DOSE DELIVERED: 634.77mGy.cm Total DLP DATA REPOSITORY: All CT scans at this facility are submitted to the National Radiology Data Registry (NRDR) Dose Index Registry (DIR) with the [employer] (ACR). RADIATION OPTIMIZATION: All CT scans at this facility use at least one of these dose optimization te chniques: automated exposure control; mA and/or kV adjustment per patient size (includes targeted exa ms where dose is matched to clinical indication); or iterative reconstruction.
--- NOTE | 2022-03-02 00:34 | ED.GENADUL_ITS ---
Discharge Plan Disposition Patient Disposition: HOME Condition: Stable Discharge Details Clinical Impression: Abdominal pain Primary Care Provider: Isabell Inman ED Provider: Sony Guaman Home Meds and New Rx's Prescriptions: New prednisone 20 mg tablet 60 mg PO DAILY 4 Days Qty: 12 0RF Continued trazodone 50 mg tablet 50 mg PO DAILY Qty: 30 1RF Rx Instructions: take 1 tablet once a day propranolol 20 mg tablet 20 mg PO Q3H PRN Qty: 90 0RF Rx Instructions: Take 1 tablet by mouth every evening and may take 1 tablet every 3 hours as needed for anxiety. spironolactone 100 mg tablet 200 mg PO DAILY Label Comments: TAKE 1/2 TABLET BY MOUTH DAILY FOR 2 WEEKS. THEN 1 TABLET DAILY FOR 2 WEEKS. THEN 1 AND 1/2 TABLETS DAILY FOR 2 WEEKS. THEN TAKE ONE TABLET lithium carbonate 300 mg tablet extended release 600 mg PO DAILY Label Comments: TAKE THREE TABLETS BY MOUTH EVERY DAY DIRECTED estradiol 2 mg tablet 4 mg PO DAILY Label Comments: TAKE TWO TABLETS BY MOUTH EVERY DAY docusate sodium 50 mg Capsule 100 mg PO QAM fluvoxamine 50 mg tablet 125 mg PO BID Rx Instructions: Take 2 tablets by mouth every evening at bedtime. magnesium citrate Solution 150 ml PO ONCE Qty: 296 0RF Rx Instructions: as a single dose Discharge Instructions Instructions: Abdominal Pain (ED) Additional Instructions: your appendix appeared normal on the cat scan today. the ct is showing findings concerning for inflammatory bowel disease. This is not the definitive test for this and the findings can sometimes be due to a stomach bug. follow up with your primary care provider, if symptoms aren't improving discuss seeing a salesperson automobiles return to the emergency department if you feel more ill, have severe worsening pain or persistent vomiting Medical Decision Making 21 yo born male transitioned to female comes in with continued abdominal pain. He was seen last night, had a negative ct per vrad and discharged with diagnosis of constipation which she has been having issues with. The radiologist today over read the ct and said the appendix was mildly enlarged, patient was contacted and per note was doing better. She states the pain has increased since so came here. No fevers, no chills, no n/v. She localizes the pain to the luq though does have some mild rlq tenderness, no distention, no rashes. Suspect this is constipation given generalized abdominal pain but given she had a wbc of [address] over read today will repeat ct to evaluate for appendicitis. labs unremarkable other than wbc of 16. CT read is normal appearing appendix though has findings concerning for inflammatory bowel disease, no perforation and no abscess. Patient feels significantly better and has minimal luq tenderness, no rlq tenderness or guarding. She does state she has had times of intermittent abdominal discomfort in the past but no diarrhea, states can't advise of any family history of ibd due to not having family per the patient. Will trial short course of steroids, discussed f/u with pcp to discuss gi referral if symptoms return or progress. Return precautions given Differential Diagnosis Differential Diagnosis: constipation, appendicitis Medical Records Medical records reviewed: Yes I reviewed the patient's medical records. Imaging Data Radiologic Study: Attestation: I personally reviewed and interpreted this imaging study as follows: Imaging: CT Scan Radiologist's impression: IMPRESSION: 1. Features concerning for inflammatory bowel disease. Differential diagnosis of ulcerative colitis versus Crohn's disease. 2. There is prominent short segment edema of the mid right colon with near complete closure of the colonic lumen. There is mild edema suggested of the sigmoid colon and rectal region. The right colonic changes have significantly progressed since 02/28/2022. 3. No free fluid. No free air. Lab Data Lab results reviewed: Yes I reviewed the patient's lab results. HPI General Mode of arrival: ambulatory . Date/Time Provider Initiated Documentation: 03/02/22 00:21 . Limitations to Documentation: no limitations . Information obtained by: patient . History of Present Illness 21 year old M presents to the emergency department with the chief complaint of abdominal pain, described as moderate, Quality is described as stabbing and aching, and it has been constant. No relieving factors improve symptom(s), No exacerbating factors reported . Patient did receive the following treatments prior to arrival, none Related Data Home Medications Medication Instructions Recorded Confirmed trazodone 50 mg tablet 50 mg PO DAILY #30 tab-caps 03/28/18 03/02/22 propranolol 20 mg tablet 20 mg PO Q3H PRN #90 tabs 05/06/18 03/02/22 estradiol 2 mg tablet 4 mg PO DAILY 06/29/21 03/02/22 lithium carbonate 300 mg 600 mg PO DAILY 06/29/21 03/02/22 tablet,extended release spironolactone 100 mg tablet 200 mg PO DAILY 06/29/21 03/02/22 fluvoxamine 50 mg tablet 125 mg PO BID 02/28/22 03/02/22 magnesium citrate 150 ml PO ONCE #296 mL 02/28/22 docusate sodium 50 mg capsule 100 mg PO QAM 03/02/22 03/02/22 prednisone 20 mg tablet 60 mg PO DAILY 4 days #12 tabs 03/02/22 Previous Rx's Medication Instructions Recorded trazodone 50 mg tablet 50 mg PO DAILY #30 tab-caps 03/28/18 propranolol 20 mg tablet 20 mg PO Q3H PRN #90 tabs 05/06/18 magnesium citrate 150 ml PO ONCE #296 mL 02/28/22 prednisone 20 mg tablet 60 mg PO DAILY 4 days #12 tabs 03/02/22 Allergies Allergy/AdvReac Type Severity Reaction Status Date / Time egg yolk Allergy Intermediate VOMITING Verified 06/29/21 11:10 General Stated Complaint: Abd Prob VICTOR HUGO: 2 Review of Systems All systems reviewed & are unremarkable except as noted in HPI and below Constitutional Constitutional: Denies chills, Denies fever(s) and Denies weakness Cardiovascular Cardiovascular: Denies chest pain and Denies dyspnea Respiratory Respiratory: Denies cough and Denies dyspnea Gastrointestinal Gastrointestinal: Denies vomiting Genitourinary Genitourinary: Denies dysuria Neurologic Neurologic: Denies weakness PFSH All Active Problems (Updated 03/02/22 @ 02:03 by Sony Guaman MD) Constipation (Acute) Abdominal pain (Acute) Depression (Chronic) doing well on current meds [facility] brochure provided and discussed - encouraged pt to contact re financial/transportation issues re food insecurity - hand out provided/discussed re local resources Medical History (Updated 03/02/22 @ 02:03 by Sony Guaman MD) Anxiety Depression Insomnia Wears glasses Surgical History Tooth extraction extraction 4 wisdom teeth Family History Mother Mental disorder anxiety/depression Father Alcohol abuse Healthy adult Other Diabetes PGF Alcohol abuse MGF, MGM Essential hypertension PGF Bipolar disorder PGM Mental disorder Myocardial infarction PGF Social History Smoking/Tobacco Use Status: Never Smoking risk assessment performed?: Yes Alcohol Intake: never Drug use: Occasionally Substance use type: marijuana Details: Marajuana use for pain management Do you feel safe at home: Yes Do you feel safe in your relationship?: Yes Exam GI Palpation: soft and tender Course Vital Signs Vital signs: Vital Signs Temperature 36.5 C 03/02/22 00:24 Pulse 67 03/02/22 00:24 Respiratory Rate 22 03/02/22 00:24 Blood Pressure 125/69 03/02/22 00:24 Pulse Oximetry 98 03/02/22 00:24 Temperature 36.5 C 03/02/22 00:24 Temperature Source Temporal Artery Scan 03/02/22 00:24 Pulse 67 03/02/22 00:24 Respiratory Rate 22 03/02/22 00:24 Blood Pressure 125/69 03/02/22 00:24 Blood Pressure Position Sitting 03/02/22 00:24 Pulse Oximetry 98 03/02/22 00:24 Oxygen Delivery Method Room Air 03/02/22 00:24 Oxygen Flow Rate 0 03/02/22 00:24 Pain Level 6 03/02/22 00:24
[2022-03-02 01:07] LABS: Source Nasal/Nares
[2022-03-02 01:13] LABS: Abs Immature Grans 0.07 10^3/uL (0.0-0.06); Absolute Basophil Count 0.05 10^3/uL (0.0-0.2); Absolute Lymphocyte Count 3.19 10^3/uL (1.2-3.4); Absolute Monocyte Count 1.14 10^3/uL (0.1-0.8); Basophils % 0.3; Eosinophils % 1.4; HCT 37.9 % (40.0-50.0); HGB 13.6 g/dL (13.5-17.5); Immature Grans % 0.4; Lymphocytes % 19.9; MCH 32.5 pg (27.0-33.0); MCHC 35.9 % (32.0-36.0); MCV 91 fL (80-95); MPV 9.1 fL (8.0-11.0); Monocytes % 7.1; Neutrophils % 70.9; Platelet Count 298 10^3/uL (130-400); RBC 4.19 10^6/uL (4.36-5.78); RDW 10.8 % (11.8-14.1); RDW-SD 35.7 fL; WBC 16.03 10^3/uL (4.4-10.8)
[2022-03-02 01:14] LABS: Absolute Eosinophil Count 0.22 10^3/uL (0.0-0.7); Absolute Neutrophil Count 11.37 10^3/uL (1.2-6.7)
[2022-03-02 01:25] LABS: Lithium 0.8 mmol/l (0.6-1.2)
[2022-03-02 01:26] LABS: Bilirubin Negative (Negative); Blood Negative (Negative); Clarity Clear (Clear); Glucose Negative (Negative); Ketones Negative (Negative); Leukocyte Esterase Negative (Negative); Nitrite Negative (Negative); Urobilinogen 0.2 EU/dL (Up TO 0.2); pH 6.5 (5-8)
[2022-03-02] MEDS: Ketorolac 15 MG/ML VIAL IVP (01:28)
[2022-03-02 01:31] LABS: ALT 18 U/L (16-63); AST 17 U/L (15-37); Albumin 3.8 g/dL (3.4-5.0); Alkaline Phosphatase 38 U/L (46-116); BUN 17 mg/dL (7-18); Bilirubin, Total 0.2 mg/dL (0.2-1.0); CREATININE 0.9 mg/dL (0.70-1.30); Calcium 9.2 mg/dL (8.5-10.1); Chloride 92 mmol/L (98-107); Estimated GFR 123.07 (mL/min/1.73m2); Glucose 88 mg/dL (74-106); Lipase 117 U/L (73-393); Sodium 127 mmol/L (136-145)
[2022-03-02] MEDS: Normal Saline 1,000 ML 1000 ML IV (01:31)
[2022-03-02 01:44] LABS: COVID-19 PCR Negative (Negative)
--- NOTE | 2022-03-02 01:51 | DI.VRAD_ITS ---
PROCEDURE INFORMATION: Exam: CT Abdomen And Pelvis With Contrast Exam date and time: 03/02/2022 1:06 AM Age: 21 years old Clinical indication: Abdominal pain; Localized; Patient HX: Lower abd pain for 5 days, increasing ? appendicitis TECHNIQUE: Imaging protocol: Computed tomography of the abdomen and pelvis with contrast. Radiation optimization: All CT scans at this facility use at least one of these dose optimization techniques: automated exposure control; mA and/or kV adjustment per patient size (includes targeted exams where dose is matched to clinical indication); or iterative reconstruction. Contrast material: OMNIPAQUE 350; Contrast volume: 90 ml; Contrast route: INTRAVENOUS (IV); COMPARISON: CT ABDOMEN PELVIS W 02/28/2022 9:09 PM FINDINGS: Lungs: Lung bases are clear. Pleural spaces: No pleural effusion. Heart: Normal heart size. No pericardial effusion. No coronary artery atherosclerotic calcium evident. Liver: The liver is normal in size, contour and attenuation. Gallbladder and bile ducts: The gallbladder is normal in size and shape. No stones or inflammatory changes. Pancreas: The pancreas is normal in contour and attenuation. Spleen: The spleen is normal in size, contour and attenuation. Adrenal glands: The adrenal glands are normal in size and contour bilaterally. Kidneys and ureters: The kidneys bilaterally are unremarkable. Normal attenutation. No hydronephrosis. No calculi. Stomach and bowel: Gastric morphology is unremarkable. No edema. No gastric outlet obstruction. Small bowel loops are normal in course and caliber. No elana edema. No obstructive features. Large bowel is normal in course. There is a region of wall thickening in the mid right colon. Length of this region is approximately 5.5 cm. There appears to be enhancement of this area of wall thickening. Are there is severe narrowing of the colonic lumen. See axial series 4, images 35 through 48. See sagittal series 7, image 86. See coronal series 6, image 43. On review of previous study 02/28/2022, there was mild wall thickening in this region. This appears to have significantly progressed. This is concerning for a process such as inflammatory bowel disease or ulcerative colitis. There does appear to be some mild inflammation or edema of the sigmoid colon and rectal region as well. There is moderate retention of feces in the right colon and transverse colon. Appendix: The appendix is identified. There is hyperdense material within the appendix which is likely appendiceal calcium. There is no acute inflammation. See coronal series 6, images 37 through 31. Intraperitoneal space: Unremarkable. No free air. No significant fluid collection. Vasculature: Unremarkable. No abdominal aortic aneurysm. Lymph nodes: No intra-abdominal or retroperitoneal adenopathy evident. Urinary bladder: Unremarkable as visualized. Reproductive: Unremarkable as visualized. Bones/joints: Unremarkable. No acute fracture. Soft tissues: Unremarkable. IMPRESSION: 1. Features concerning for inflammatory bowel disease. Differential diagnosis of ulcerative colitis versus Crohn's disease. 2. There is prominent short segment edema of the mid right colon with near complete closure of the colonic lumen. There is mild edema suggested of the sigmoid colon and rectal region. The right colonic changes have significantly progressed since 02/28/2022. 3. No free fluid. No free air. Dictated and Authenticated by: Leroy Renee MD. Ordering:VENUS Cardoza MD
[2022-03-02] MEDS: predniSONE 20 MG TAB 60 MG PO (02:23)
== END 2022-03-02 02:32 | disposition home or self-care (01) ==
PROVIDERS: Emergency Provider Emergency Medicine; PCP Nurse Practitioner Family
DX: R10.12 Left upper quadrant pain; R10.813 Right lower quadrant abdominal tenderness; Z20.822 Contact with and (suspected) exposure to COVID-19
CPT/HCPCS: 80053; 83690; 87635; 96361; 96374; 99285; 74177; 80178; 81003; 85025; 99283; J1885; J7512

== ENCOUNTER 2022-05-20 21:23 | Emergency (ER) | payer MEDICAID, SELFPAY ==
[2022-05-20 21:37] VITALS: BP 136/92; PULSE 115; RESP 18; TEMP 36.6; O2SAT 99
--- NOTE | 2022-05-20 22:28 | W.ED.GENAD ---
Discharge Plan Disposition Patient Disposition: Home Condition: Good Discharge Details Clinical Impression: Acute pain of right thigh, Suspected deep vein thrombosis Primary Care Provider: Isabell Inman ED Provider: Nacho Yao Home Meds and New Rx's Prescriptions: No Action trazodone 50 mg tablet 50 mg PO DAILY Qty: 30 1RF Rx Instructions: take 1 tablet once a day propranolol 20 mg tablet 20 mg PO Q3H PRN Qty: 90 0RF Rx Instructions: Take 1 tablet by mouth every evening and may take 1 tablet every 3 hours as needed for anxiety. spironolactone 100 mg tablet 200 mg PO DAILY Label Comments: TAKE 1/2 TABLET BY MOUTH DAILY FOR 2 WEEKS. THEN 1 TABLET DAILY FOR 2 WEEKS. THEN 1 AND 1/2 TABLETS DAILY FOR 2 WEEKS. THEN TAKE ONE TABLET lithium carbonate 300 mg tablet extended release 600 mg PO DAILY Label Comments: TAKE THREE TABLETS BY MOUTH EVERY DAY DIRECTED estradiol 2 mg tablet 4 mg PO DAILY Label Comments: TAKE TWO TABLETS BY MOUTH EVERY DAY docusate sodium 50 mg Capsule 100 mg PO QAM fluvoxamine 50 mg tablet 125 mg PO BID Rx Instructions: Take 2 tablets by mouth every evening at bedtime. magnesium citrate Solution 150 ml PO ONCE Qty: 296 0RF Rx Instructions: as a single dose Discharge Instructions Instructions: Deep Vein Thrombosis (ED), Leg Pain (ED) Additional Instructions: At this time there is concern that you may have a small blood clot on the medial aspect of your knee at your deep blood vessel. Out of an abundance of precaution we will give you a 24-hour dose of Lovenox which is a blood thinner. Please contact the ultrasound department tomorrow morning after 7 AM to schedule/confirm the appointment time. Please follow-up closely with your welder apprentice arc for further discussion about your hormonal replacement therapy. If you notice any worsening of your symptoms, or any new symptoms such as vomiting, diarrhea, fever, chills, shortness of breath, chest pain, numbness, weakness, or fainting , please return immediately to the emergency department for reevaluation. Please follow up with your primary care provider as soon as possible for reassessment and reevaluation. As always, it was a pleasure participating in your medical care today. Referrals: Isabell Inman [Primary Care Provider] - Discharge Data Discharge Date/Time-TO BE ENTERED AT DEPARTURE: 05/20/22 22:47 Medical Decision Making Right lower extremity in comparison to the left is unremarkable. No swelling, edema, pretibial edema, or calf tenderness. However patient does have subjective mild tenderness over the medial aspect of the knee transitioning towards the posterior aspect. This starts at the proximal base of the calf, and extends around the knee medially up into the mid thigh region. Normal pulses in the groin area. No redness, no asymmetry, no nodular feelings or ropiness. Distal pulses are +2 bilaterally, with brisk capillary refill, and no signs of vascular congestion. Exam demonstrates Right lower extremity in comparison to the left is unremarkable. No swelling, edema, pretibial edema, or calf tenderness. However patient does have subjective mild tenderness over the medial aspect of the knee transitioning towards the posterior aspect. This starts at the proximal base of the calf, and extends around the knee medially up into the mid thigh region. Normal pulses in the groin area. No redness, no asymmetry, no nodular feelings or ropiness. Distal pulses are +2 bilaterally, with brisk capillary refill, and no signs of vascular congestion. Limited right sided bedside ultrasound was performed, and no evidence of clot in the deep veins of the calf, no evidence of clot in the mid or proximal thigh or groin. The small saphenous and the popliteal vein are easily compressible as well, however the greater saphenous in the area around the medial aspect of the knee demonstrates slight difficulty with compression. I am unable to compress it completely on bedside ultrasound, concern for DVT. Discussed risks and benefits of treatment, and at this time patient has elected for subcu Lovenox, we will give 24-hour dosing, and schedule for ultrasound tomorrow morning as no ultrasound is currently available now at night. Clinical symptoms are inconsistent with pulmonary embolism at this time. No chest pain, tachypnea, or shortness of breath no indication for CTA. No evidence of phlegmasia cerulea dolens Dillons. Discussed red flags for which to return. Outpatient ultrasound order placed. I have extensively reviewed the treatment plan and discharge instructions with the patient. I have addressed all patient concerns at this time. The patient was made aware of what symptoms to monitor for that would warrant a return to the emergency department. Discussed the plan with the patient, they demonstrate verbal understanding and agreement with our assessment and plan at this time. The documentation in this chart was dictated using [email or web address] dictation software. Please excuse any dictation errors. Sign Out No HPI General Date/Time Provider Initiated Documentation: 05/20/22 21:51. HPI Narrative: Patient is a pleasant 21-year-old male who is transitioning to female, who presents today for right medial knee pain. Patient states symptoms have been present for the last 4 days, there is no history of trauma. Patient is currently transitioning, and is normally on 2 mg of estradiol twice daily, and 100 mg of spironolactone twice daily. Patient was noticing that she was not receiving the desired changes with her transition therapy as prescribed by her welder apprentice arc, and so patient very willingly admits that she ordered additional estradiol on the Internet without a prescription and had been taking it for the last 6 months. She was taking 2 mg additionally every day. 4 days ago she noticed pain in her leg, and was concerned that this might represent a blood clot. She stopped the additional estradiol 4 days ago, she discussed this with her welder apprentice arc. The pain in the medial aspect of her right knee/thigh has continued, and she presents tonight for evaluation of potential blood clot. She denies any chest pain or shortness of breath whatsoever. She denies any previous history of blood clots. She denies any trauma, change in color, fever or chills. No other complaints at this time. No other modifying factors. No long trips surgeries or procedures. Related Data Home Medications Medication Instructions Recorded Confirmed trazodone 50 mg tablet 50 mg PO DAILY #30 tab-caps 03/28/18 03/02/22 propranolol 20 mg tablet 20 mg PO Q3H PRN #90 tabs 05/06/18 03/02/22 estradiol 2 mg tablet 4 mg PO DAILY 06/29/21 03/02/22 lithium carbonate 300 mg 600 mg PO DAILY 06/29/21 03/02/22 tablet,extended release spironolactone 100 mg tablet 200 mg PO DAILY 06/29/21 03/02/22 fluvoxamine 50 mg tablet 125 mg PO BID 02/28/22 03/02/22 magnesium citrate 150 ml PO ONCE #296 mL 02/28/22 docusate sodium 50 mg capsule 100 mg PO QAM 03/02/22 03/02/22 Previous Rx's Medication Instructions Recorded trazodone 50 mg tablet 50 mg PO DAILY #30 tab-caps 03/28/18 propranolol 20 mg tablet 20 mg PO Q3H PRN #90 tabs 05/06/18 magnesium citrate 150 ml PO ONCE #296 mL 02/28/22 Allergies Allergy/AdvReac Type Severity Reaction Status Date / Time egg yolk Allergy Intermediate VOMITING Verified 06/29/21 11:10 General Stated Complaint: Vascular VICTOR HUGO: 3 Review of Systems All systems reviewed & are unremarkable except as noted in HPI and below PFSH All Active Problems (Updated 05/20/22 @ 22:31 by Nacho Yao DO) Acute pain of right thigh (Acute) Suspected deep vein thrombosis (Acute) Depression (Chronic) doing well on current meds [facility] brochure provided and discussed - encouraged pt to contact re financial/transportation issues re food insecurity - hand out provided/discussed re local resources Medical History (Updated 05/20/22 @ 22:31 by Nacho Yao DO) Anxiety Depression Insomnia Wears glasses Surgical History Tooth extraction extraction 4 wisdom teeth Family History Mother Mental disorder anxiety/depression Father Alcohol abuse Healthy adult Other Diabetes PGF Alcohol abuse MGF, MGM Essential hypertension PGF Bipolar disorder PGM Mental disorder Myocardial infarction PGF Social History Smoking/Tobacco Use Status: Never Smoking risk assessment performed?: Yes Alcohol Intake: never Drug use: Occasionally Substance use type: marijuana Details: Marajuana use for pain management Do you feel safe at home: Yes Do you feel safe in your relationship?: Yes Exam Narrative Exam Narrative: 1.Const: Well-nourished, Well-developed, appearing stated age 2.Eyes: PERRL, no conjunctival injection, and symmetrical lids. 3.ENT: Atraumatic external nose and ears. Moist MM. Neck: Symmetric, trachea midline, No thyromegaly. 4.CVS: +S1/S2, No murmurs or gallops. Peripheral pulses 2+ and equal in all extremities. Brisk capillary refill in all extremities. 5.RESP: Unlabored respiratory effort. Clear to auscultation bilaterally. No wheezes rales or rhonchi 6.GI: Soft, Nontender/Nondistended, No hepatosplenomegaly. No guarding or rebound. 7.MSK: Right lower extremity in comparison to the left is unremarkable. No swelling, edema, pretibial edema, or calf tenderness. However patient does have subjective mild tenderness over the medial aspect of the knee transitioning towards the posterior aspect. This starts at the proximal base of the calf, and extends around the knee medially up into the mid thigh region. Normal pulses in the groin area. No redness, no asymmetry, no nodular feelings or ropiness. Distal pulses are +2 bilaterally, with brisk capillary refill, and no signs of vascular congestion. 8.Skin: Warm, Dry. No rashes or lesions. 9.Neuro: production supv II-XII grossly intact. Sensation grossly intact, no focal neurologic deficits. 10.Psych: (AAO) x3. Appropriate mood and affect Course Vital Signs Vital signs: Vital Signs Temperature 36.6 C 05/20/22 21:37 Pulse 115 H 05/20/22 21:37 Respiratory Rate 18 05/20/22 21:37 Blood Pressure 136/92 H 05/20/22 21:37 Pulse Oximetry 99 05/20/22 21:37 Temperature 36.6 C 05/20/22 21:37 Temperature Source Temporal Artery Scan 05/20/22 21:37 Pulse 115 H 05/20/22 21:37 Respiratory Rate 18 05/20/22 21:37 Blood Pressure 136/92 H 05/20/22 21:37 Blood Pressure Position Supine 05/20/22 21:37 Pulse Oximetry 99 05/20/22 21:37 Oxygen Delivery Method Room Air 05/20/22 21:37 Oxygen Flow Rate 0 05/20/22 21:37 Pain Level 3 05/20/22 21:37 Comment 05/20/22 21:37 POCUS Exam (ED) Limited Vascular Exam DATE OF EXAM: 05/20/22 TIME OF EXAM: 22:50 PROVIDER THAT PERFORMED THE STUDY: Nacho Yao IS THIS A REPEAT EXAM DURING THIS ENCOUNTER: No Vascular Exam: Right lower extremity REASON FOR EXAM: Concern for DVT right lower extremity VISUALIZED STRUCTURES: Right common femoral vein, Right popliteal vein, Right superficial femoral vein and Right greater saphenous vein PERTINENT FINDINGS/IMPRESSION: Compressible veins right leg and Non compressible veins right leg Exam Complete DIFFERENTIAL DIAGNOSES: There appears to be a noncompressible area in the greater saphenous vein over the area of the medial aspect of the knee
== END 2022-05-20 22:47 | disposition home or self-care (01) ==
PROVIDERS: Emergency Provider Student in an Organized Health Care Education/Training Program; PCP Nurse Practitioner Family
DX: M79.651 Pain in right thigh (principal)
CPT/HCPCS: 93971; 99284; 99283

== ENCOUNTER → 2022-05-21 09:33 | Outpatient (CLI) | payer MEDICAID, SELFPAY ==
--- NOTE | 2022-05-21 | DI.US_ITS ---
Exam(s) US LOWER EXTREMITY VENOUS RT EXAM: US LOWER EXTREMITY VENOUS RT CLINICAL HISTORY: SUSPECT DVT, ACUTE PAIN RT THIGH. TECHNIQUE: Ultrasound performed using standard protocol. COMPARISON: No exams were available for comparison FINDINGS: Duplex venous ultrasound was performed according to the usual protocol. The deep veins are freely com pressible throughout and there is normal flow augmentation with manual calf compression. 2D and Doppl er evaluation are unremarkable. IMPRESSION: No evidence of deep venous thrombosis of the right lower extremity. DATA REPOSITORY:
== END ==
PROVIDERS: PCP Nurse Practitioner Family; Visit Provider Student in an Organized Health Care Education/Training Program
DX: M79.651 Pain in right thigh (principal)
CPT/HCPCS: 93971

== ENCOUNTER 2022-05-21 13:08 | Emergency (ER) | payer MEDICAID, SELFPAY ==
[2022-05-21 13:13] VITALS: BP 124/71; PULSE 80; RESP 15; TEMP 36.9; O2SAT 100
--- NOTE | 2022-05-21 13:31 | ED.GENADUL_ITS ---
Discharge Plan Disposition Patient Disposition: Home Condition: Improving Discharge Details Clinical Impression: Acute pain of right thigh Primary Care Provider: Isabell Inman ED Provider: Amish Laird Home Meds and New Rx's Prescriptions: Continued trazodone 50 mg tablet 50 mg PO DAILY Qty: 30 1RF Rx Instructions: take 1 tablet once a day propranolol 20 mg tablet 20 mg PO Q3H PRN Qty: 90 0RF Rx Instructions: Take 1 tablet by mouth every evening and may take 1 tablet every 3 hours as needed for anxiety. spironolactone 100 mg tablet 200 mg PO DAILY Label Comments: TAKE 1/2 TABLET BY MOUTH DAILY FOR 2 WEEKS. THEN 1 TABLET DAILY FOR 2 WEEKS. THEN 1 AND 1/2 TABLETS DAILY FOR 2 WEEKS. THEN TAKE ONE TABLET lithium carbonate 300 mg tablet extended release 600 mg PO DAILY Label Comments: TAKE THREE TABLETS BY MOUTH EVERY DAY DIRECTED estradiol 2 mg tablet 4 mg PO DAILY Label Comments: TAKE TWO TABLETS BY MOUTH EVERY DAY docusate sodium 50 mg Capsule 100 mg PO QAM fluvoxamine 50 mg tablet 125 mg PO BID Rx Instructions: Take 2 tablets by mouth every evening at bedtime. magnesium citrate Solution 150 ml PO ONCE Qty: 296 0RF Rx Instructions: as a single dose Discharge Instructions Instructions: Leg Pain (ED) Additional Instructions: You may use over the counter medication for pain. You may do activities as tolerated by pain. If you develop any new or worsening symptoms please feel return to the emergency department for reassessment or follow-up with your primary care provider if you are not improving in the next week. Referrals: Isabell Inman [Primary Care Provider] - (If not improving) Discharge Data Discharge Date/Time-TO BE ENTERED AT DEPARTURE: 05/21/22 14:18 Medical Decision Making Patient presenting to the emergency department for assessment and to receive ultrasound results. Patient was seen yesterday for concern of possible DVT in right thigh. Patient states that pain and discomfort has improved today denies all other symptoms. Physical exam shows tenderness to right mid medial thigh. This is somewhat exacerbated by movement of the leg but pain is mild. Exam is otherwise unremarkable. Ultrasound results were negative for any DVT per radiologist report. Discussed conservative management of suspected musculoskeletal pain with patient along with return and follow-up precautions. After discussion of diagnosis and plan of care patient has no further needs, questions, or concerns and states clear understanding to return to the emergency department for any worsening symptoms. This documentation was generated using [employer] dictation system, please disregard any oddities of phrase or misspellings. Imaging Data Radiologic Study: Imaging: Ultrasound Radiologist's impression: FINDINGS: Duplex venous ultrasound was performed according to the usual protocol. The deep veins are freely compressible throughout and there is normal flow augmentation with manual calf compression. 2D and Doppler evaluation are unremarkable. IMPRESSION: No evidence of deep venous thrombosis of the right lower extremity. Sign Out No HPI General Mode of arrival: ambulatory . Date/Time Provider Initiated Documentation: 05/21/22 13:09 . Limitations to Documentation: no limitations . Information obtained by: patient and RN notes reviewed . History of Present Illness 21 year old M presents to the emergency department with the chief complaint of Right leg pain, described as mild, with intensity rated at 3. Quality is described as aching, and is localized to the right and lower extremity. Patient reports no radiation. Patient started experiencing this day(s) (2) and it has been constant. No relieving factors improve symptom(s), No exacerbating factors reported . Patient notes no other symptoms.. Patient did receive the following treatments prior to arrival, none Related Data Home Medications Medication Instructions Recorded Confirmed trazodone 50 mg tablet 50 mg PO DAILY #30 tab-caps 03/28/18 03/02/22 propranolol 20 mg tablet 20 mg PO Q3H PRN #90 tabs 05/06/18 03/02/22 estradiol 2 mg tablet 4 mg PO DAILY 06/29/21 03/02/22 lithium carbonate 300 mg 600 mg PO DAILY 06/29/21 03/02/22 tablet,extended release spironolactone 100 mg tablet 200 mg PO DAILY 06/29/21 03/02/22 fluvoxamine 50 mg tablet 125 mg PO BID 02/28/22 03/02/22 magnesium citrate 150 ml PO ONCE #296 mL 02/28/22 docusate sodium 50 mg capsule 100 mg PO QAM 03/02/22 03/02/22 Previous Rx's Medication Instructions Recorded trazodone 50 mg tablet 50 mg PO DAILY #30 tab-caps 03/28/18 propranolol 20 mg tablet 20 mg PO Q3H PRN #90 tabs 05/06/18 magnesium citrate 150 ml PO ONCE #296 mL 02/28/22 Allergies Allergy/AdvReac Type Severity Reaction Status Date / Time egg yolk Allergy Intermediate VOMITING Verified 06/29/21 11:10 General Stated Complaint: GenMedical VICTOR HUGO: 4 Review of Systems Narrative: 6 systems reviewed and unremarkable except what is marked below. Constitutional Constitutional: Denies chills and Denies fever(s) Cardiovascular Cardiovascular: Denies chest pain and Denies dyspnea Respiratory Respiratory: Denies dyspnea Musculoskeletal Musculoskeletal: Reports as per HPI Integumentary/Breasts Skin/Breast: Denies erythema and Denies unusual bruising PFSH All Active Problems Depression (Chronic 09/14/11) Anxiety (Chronic 09/14/11) Acute pain of right thigh (Acute) Suspected deep vein thrombosis (Acute) Depression (Chronic) doing well on current meds [facility] [employer] brochure provided and discussed - encouraged pt to contact re financial/transportation issues re food insecurity - hand out provided/discussed re local resources Medical History Anxiety Depression Insomnia Wears glasses Surgical History Tooth extraction extraction 4 wisdom teeth Family History Mother Mental disorder anxiety/depression Father Alcohol abuse Healthy adult Other Diabetes PGF Alcohol abuse MGF, MGM Essential hypertension PGF Bipolar disorder PGM Mental disorder Myocardial infarction PGF Social History Smoking/Tobacco Use Status: Never Smoking risk assessment performed?: Yes Alcohol Intake: never Drug use: Occasionally Substance use type: marijuana Details: Marajuana use for pain management Do you feel safe at home: Yes Do you feel safe in your relationship?: Yes Exam Const General: cooperative, no acute distress and not ill appearing Orientation: alert, awake and oriented x3 Resp Effort & Inspection: normal respiratory effort, able to speak in complete sentences and no respiratory distress Cardio Rate: regular rate Rhythm: regular rhythm Pulses: posterior tibial pulses present and normal peripheral pulses Skin General skin exam: no rashes or lesions noted Neuro General: patient alert, patient awake, patient oriented x3, moves all extremities and no focal motor deficits Sensory Exam: no sensory deficits noted Extrem General: normal exam except as noted Right lower extremity: hip/thigh Details: tenderness Location: of the mid upper leg Location: medially and normal ROM; no swelling and no deformity Course Vital Signs Vital signs: Vital Signs Temperature 36.9 C 05/21/22 13:13 Pulse 80 05/21/22 13:13 Respiratory Rate 15 05/21/22 13:13 Blood Pressure 124/71 05/21/22 13:13 Pulse Oximetry 100 05/21/22 13:13 Temperature 36.9 C 05/21/22 13:13 Pulse 80 05/21/22 13:13 Respiratory Rate 15 05/21/22 13:13 Blood Pressure 124/71 05/21/22 13:13 Blood Pressure Position Sitting 05/21/22 13:13 Pulse Oximetry 100 05/21/22 13:13 Oxygen Delivery Method Room Air 05/21/22 13:13 Oxygen Flow Rate 0 05/21/22 13:13 Pain Level 3 05/21/22 13:13
== END 2022-05-21 14:18 | disposition home or self-care (01) ==
PROVIDERS: Emergency Provider Nurse Practitioner Family; PCP Nurse Practitioner Family
DX: M79.651 Pain in right thigh (principal)
CPT/HCPCS: 99281

== ENCOUNTER 2022-12-18 18:36 | Emergency (ER) | payer MEDICAID, SELFPAY ==
[2022-12-18 18:44] VITALS: BP 117/74; PULSE 86; RESP 98; TEMP 36.7; O2SAT 99
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
[2022-12-18] MEDS: Dexamethasone 4 MG TAB PO (21:05)
[2022-12-18 21:11] VITALS: BP 107/75; PULSE 92; RESP 16; TEMP 36.4; O2SAT 98
--- NOTE | 2022-12-19 00:48 | PDOC.MHCN_ITS ---
Date of service: 12/18/22 Time of Service: 19:39 PHQ-9 Over the last 2 weeks, how often have you been bothered by any of the following problems? 1. Little interest or pleasure in doing things: several days 2. Feeling down, depressed, or hopeless: several days 3. Trouble falling or staying asleep, or sleeping too much: several days 4. Feeling tired or having little energy: not at all 5. Poor appetite or overeating: not at all 6. Feeling bad about yourself - or that you are a failure or have let yourself and your family down: nearly every day 7. Trouble concentrating on things, such as reading the newspaper or watching television: several days 8. Moving or speaking so slowly that other people could have noticed? - Or the opposite - being so fidgety or restless that you have been moving around a lot more than usual: not at all 9. Thoughts that you would be better off or of hurting yourself in some way: not at all Total score: 7 If you checked off any problems, how difficult have these problems made it for you to do your work, take care of things at home, or get along with other people?: somewhat difficult Source: Developed by Drs. Jabier Riley, Raisa Davies, Scar Berger and colleagues, with an educational evie from [employer]. Suicide Severity Rate CSSRS Have you wished you were or wished you could go to sleep and not wake up?: Yes Have you actually had any thoughts of killing yourself?: Yes CSSRS2 Have you been thinking about how you might do this?: No Have you had these thoughts and had some intention of acting on them?: Yes Have you started to work out or worked out the details of how to kill yourself? Do you intend to carry out this plan?: Yes CSSRS3 Have you ever done anything, started to do anything or prepared to do anything to end your life?: Yes CSSRS4 Was this within the past three months?: No Screening Score Total Score: 6 Screening: Positive Mental Health Emergency Note Release [facility] release signed:: Yes Reason for Visit Client recently gone through some stressors In the last 2 weeks has the pt presented for ES prior to today?: No Safety Risk/Harm to Self or Others Current Ideation to Harm Self or Others: No Risk: Does risk to harm exist?: No Risk: Low Risk Duty to warn indicated: No Asssessment/Mental Status Appearance: Unremarkable Attitude: Cooperative and Friendly Behavior: Unremarkable Speech: Normal and Hesitant Affect: Normal Mood: Sad and Anxious Thought process: Unremarkable and Goal directed Hallucinations: No and No evidence Delusions: No evidence Attention: Unremarkable Perception: Not impaired Orientation: Fully orientated Memory: Intact Insight: Good Judgement: Good Neurovegetative Symptoms Sleep: No change Appetitie: No change Interests: Decrease Energy: No change Libido: Not applicable Substance Use: Other (No ) Drug Issues: Other (No ) Do you use nicotine?: No Have you used substances in the last 7 days?: yes, marijuana Additional Issues: Assaultive/Threatening Behavior: No Medical Concerns: No Client engaged in active self harm w/weapon: No Threatening to run away: No Child reported abuse/neglect: No Voluntarily presenting for services: Yes Domestic violence is a concern: No Extreme Psychosis or extreme behavior is present: No Impression Client is Nacho Montoya 22-year-old transgender female whose preferred name is Radu. [facility] Ed called on behalf of the client do you to some recent stressors happening in the client?s life that have had a physical reaction to the client being a stress rash on her face. The client has a past history with [facility] but has seen no mental health agency since around 2018. Client recently cut her mother out of her life around a month ago during this time panic attacks started to emerge for the client also recently quit her job, to also improve her mental health. Client did report having thoughts of wanting to cause harm to herself, but they are fleeting, and she has not had them in the past two weeks. Client also has not engaged in non-suicidal self-injury in two years. Per the client's words her thoughts provide her comfort because ?the idea of everything stopping is comforting? but client is goal oriented and does have a support system and did not disclose a current plan at this time and mentioned that she would not go though with anything at this time. At this time oh options for mental health treatment were discussed with the client, as of this time the client is not ready to see a therapist but plans to be set up with a therapist within the next three months. Client?s current goal is to include more self-care aspects into her life and create a healthy routine. Client was safety planned and given the information for the [facility] hotline in addition to the contact information [facility] for when she is ready to be set up with a therapist. Client expressed in interest in using the 988 hotline during this time period as she has previously stated before she is not quite ready to see a therapist but does actively want to speak to someone when she experienced panic attacks or is reliving some of her past trauma. Plan/Disposition Recommended Disposition: Therapy. Reports/communication Outcome discussed with: ED/Personnel
== END 2022-12-18 21:13 | disposition home or self-care (01) ==
PROVIDERS: Emergency Provider Physician Assistant; PCP Nurse Practitioner Family
DX: L24.5 Irritant contact dermatitis due to other chemical products; F41.9 Anxiety disorder, unspecified; F32.A Depression, unspecified; Z79.899 Other long term (current) drug therapy
CPT/HCPCS: 99283; 99284; J8540

== ENCOUNTER 2022-12-20 06:17 | Emergency (ER) | payer MEDICAID, SELFPAY ==
[2022-12-20 06:21] VITALS: BP 107/71; PULSE 77; RESP 18; TEMP 37.3; O2SAT 99
--- NOTE | 2022-12-20 06:38 | ED.GENADUL_ITS ---
Discharge Plan Disposition Patient Disposition: Home Condition: Stable Discharge Details Clinical Impression: Rash Primary Care Provider: Isabell Inman ED Provider: Salvatore Noonan Home Meds and New Rx's Prescriptions: New prednisone 20 mg tablet 40 mg PO DAILY 4 Days Qty: 8 0RF No Action trazodone 50 mg tablet 50 mg PO DAILY Qty: 30 1RF Rx Instructions: take 1 tablet once a day propranolol 20 mg tablet 20 mg PO Q3H PRN Qty: 90 0RF Rx Instructions: Take 1 tablet by mouth every evening and may take 1 tablet every 3 hours as needed for anxiety. spironolactone 100 mg tablet 200 mg PO DAILY Patient Comments: TAKE 1/2 TABLET BY MOUTH DAILY FOR 2 WEEKS. THEN 1 TABLET DAILY FOR 2 WEEKS. THEN 1 AND 1/2 TABLETS DAILY FOR 2 WEEKS. THEN TAKE ONE TABLET lithium carbonate 300 mg tablet extended release 600 mg PO DAILY Patient Comments: TAKE THREE TABLETS BY MOUTH EVERY DAY DIRECTED estradiol 2 mg tablet 4 mg PO DAILY Patient Comments: TAKE TWO TABLETS BY MOUTH EVERY DAY docusate sodium 50 mg Capsule 100 mg PO QAM fluvoxamine 50 mg tablet 125 mg PO BID Rx Instructions: Take 2 tablets by mouth every evening at bedtime. magnesium citrate Solution 150 ml PO ONCE Qty: 296 0RF Rx Instructions: as a single dose Discharge Instructions Instructions: Contact Dermatitis (ED) Additional Instructions: Please follow-up closely with dermatology at [facility]. Please return to the emergency department for any worsening symptoms. Medical Decision Making 22-year-old trans female presents with worsening vesicular rash involving face abdomen and hands, itching in nature, recent exposure to new bleach/detergent for bedding and animal that has been outside possibly exposed to poison que. Rash appears to be contact dermatitis. No oral mucosal or conjunctival involvement. Hemodynamically stable. Tolerating secretions normal voice. Low suspicion for disseminated herpes or herpes zoster. No petechia or bulla or purpura. No systemic signs of severe allergic reaction. We will put patient on steroid burst pack will dose Benadryl here. We will give [facility] dermatology referral HPI General Date/Time Provider Initiated Documentation: 12/20/22 06:21 . HPI Narrative: 22-year-old trans female presents with worsening rash on face abdomen and hands. New bleach that is being used on bedding and exposure to cat that had been in the yard which has poison que. No involvement of eyes or mouth Related Data Home Medications Medication Instructions Recorded Confirmed trazodone 50 mg tablet 50 mg PO DAILY #30 tab-caps 03/28/18 03/02/22 propranolol 20 mg tablet 20 mg PO Q3H PRN #90 tabs 05/06/18 03/02/22 estradiol 2 mg tablet 4 mg PO DAILY 06/29/21 12/18/22 lithium carbonate 300 mg 600 mg PO DAILY 06/29/21 03/02/22 tablet,extended release spironolactone 100 mg tablet 200 mg PO DAILY 06/29/21 12/18/22 fluvoxamine 50 mg tablet 125 mg PO BID 02/28/22 03/02/22 magnesium citrate 150 ml PO ONCE #296 mL 02/28/22 docusate sodium 50 mg capsule 100 mg PO QAM 03/02/22 03/02/22 prednisone 20 mg tablet 40 mg PO DAILY 4 days #8 tabs 12/20/22 Previous Rx's Medication Instructions Recorded trazodone 50 mg tablet 50 mg PO DAILY #30 tab-caps 03/28/18 propranolol 20 mg tablet 20 mg PO Q3H PRN #90 tabs 05/06/18 magnesium citrate 150 ml PO ONCE #296 mL 02/28/22 prednisone 20 mg tablet 40 mg PO DAILY 4 days #8 tabs 12/20/22 Allergies Allergy/AdvReac Type Severity Reaction Status Date / Time egg yolk Allergy Intermediate VOMITING Verified 06/29/21 11:10 General Stated Complaint: RashLesion VICTOR HUGO: 4 Review of Systems Narrative: Review of Systems Constitutional: negative Eyes: negative ENT: negative Cardiovascular: negative Respiratory: negative Gastrointestinal: negative : negative Musculoskeletal: negative Skin: Rash Neurologic: negative Psych: negative PFSH All Active Problems (Updated 12/20/22 @ 06:41 by Salvatore Noonan MD) Contact dermatitis (Acute) Rash (Acute) Depression (Chronic 09/14/11) Anxiety (Chronic 09/14/11) Depression (Chronic) doing well on current meds [facility] brochure provided and discussed - encouraged pt to contact re financial/transportation issues re food insecurity - hand out provided/discussed re local resources Medical History (Updated 12/20/22 @ 06:41 by Salvatore Noonan MD) Anxiety Depression Insomnia Wears glasses Surgical History Tooth extraction extraction 4 wisdom teeth Family History Mother Mental disorder anxiety/depression Father Alcohol abuse Healthy adult Other Diabetes PGF Alcohol abuse MGF, MGM Essential hypertension PGF Bipolar disorder PGM Mental disorder Myocardial infarction PGF Social History Smoking/Tobacco Use Status: Never Smoking risk assessment performed?: Yes Alcohol Intake: never Drug use: Occasionally Substance use type: marijuana Details: Marajuana use for pain management Housing: house Do you feel safe at home: Yes Do you feel safe in your relationship?: Yes Exam Narrative Exam Narrative: Physical Examination General: alert, awake, cooperative, resting comfortably, no acute distress HEENT: No oral mucosal or conjunctival involvement; normal voice tolerating secretions Skin: Vesicular rashes in clusters on face abdomen and hands Course Vital Signs Vital signs: Vital Signs Temperature 37.3 C 12/20/22 06:21 Pulse 77 12/20/22 06:21 Respiratory Rate 18 12/20/22 06:21 Blood Pressure 107/71 12/20/22 06:21 Pulse Oximetry 99 12/20/22 06:21 Temperature 37.3 C 12/20/22 06:21 Temperature Source Oral 12/20/22 06:21 Pulse 77 12/20/22 06:21 Respiratory Rate 18 12/20/22 06:21 Respiratory Effort Normal 12/20/22 06:25 Blood Pressure 107/71 12/20/22 06:21 Pulse Oximetry 99 12/20/22 06:21 Oxygen Delivery Method Room Air 12/20/22 06:21 Oxygen Flow Rate 0 12/20/22 06:21
--- NOTE | 2022-12-20 06:38 | NUR.NOTE ---
Referral to Care Management to refer to [facility] this week for worsening contact dermatitis Nursing Note:
[2022-12-20] MEDS: diphenhydrAMINE 25 MG CAP PO (06:42)
[2022-12-20] MEDS: predniSONE 20 MG TAB 60 MG PO (06:42)
== END 2022-12-20 06:50 | disposition home or self-care (01) ==
PROVIDERS: Emergency Provider Emergency Medicine; PCP Nurse Practitioner Family
DX: R21 Rash and other nonspecific skin eruption (principal)
CPT/HCPCS: 99283; 99284; J7512

== ENCOUNTER 2023-01-02 02:58 | Emergency (ER) | payer MEDICAID, SELFPAY ==
[2023-01-02] VITALS (68 sets, daily range): BP systolic 97–157; BP diastolic 56–121; PULSE 75–122; RESP 13–41; TEMP 37.2; O2SAT 87–100
--- NOTE | 2023-01-02 03:15 | RT.EKG_ITS ---
APPROVED REPORT Exam: Resting ECG Reason for Exam: tachy, OD Patient Location: E HR:93 bpm ECG Measurements Heart Rate 93 AXIS FL 144 P 80 QRSd 65 QRS 72 QT 353 T 25 QTc 439 Conclusion Sinus rhythm...normal P axis, V-rate 60- 99 ERWP
--- NOTE | 2023-01-02 03:21 | W.ED.GENAD ---
Discharge Plan Disposition Patient Disposition: Home Condition: Stable Discharge Details Clinical Impression: Depression Primary Care Provider: Isabell Inman ED Provider: Ozzie Ellis Home Meds and New Rx's Prescriptions: No Action trazodone 50 mg tablet 50 mg PO DAILY Qty: 30 1RF Rx Instructions: take 1 tablet once a day propranolol 20 mg tablet 20 mg PO Q3H PRN Qty: 90 0RF Rx Instructions: Take 1 tablet by mouth every evening and may take 1 tablet every 3 hours as needed for anxiety. spironolactone 100 mg tablet 100 mg PO BID Patient Comments: TAKE 1/2 TABLET BY MOUTH DAILY FOR 2 WEEKS. THEN 1 TABLET DAILY FOR 2 WEEKS. THEN 1 AND 1/2 TABLETS DAILY FOR 2 WEEKS. THEN TAKE ONE TABLET lithium carbonate 300 mg tablet extended release 600 mg PO DAILY Patient Comments: TAKE THREE TABLETS BY MOUTH EVERY DAY DIRECTED estradiol 2 mg tablet 2 mg PO BID Patient Comments: TAKE TWO TABLETS BY MOUTH EVERY DAY fluvoxamine 50 mg tablet 125 mg PO BID Rx Instructions: Take 2 tablets by mouth every evening at bedtime. magnesium citrate Solution 150 ml PO ONCE Qty: 296 0RF Rx Instructions: as a single dose Discharge Instructions Instructions: Depression (ED) Additional Instructions: Please continue taking all your regular medications. You are being discharged with the understanding that you are going to be staying with your mother. You have agreed to contact mental health services every day at 10 AM. Discharge Data Discharge Date/Time-TO BE ENTERED AT DEPARTURE: 01/02/23 15:06 Medical Decision Making <Fatemeh Givens MD - Last Filed: 01/03/23 01:50> Case discussed with [facility]. Symptomatic and supportive care. Benzos if the patient continues to have a high heart rate, blood pressure, and agitation. Urine still pending. s/o to oncoming doc with psych eval pending. Medical Records Medical records reviewed: Yes I reviewed the patient's medical records. Lab Data Lab results reviewed: Yes I reviewed the patient's lab results. Lab results narrative: Patient's WBC is 14.7 K with 67 polys 8% lymphs. The remainder of her labs are unremarkable. ECG Data Attestation: I personally reviewed and interpreted this ECG (s) as follows: (EKG: NSR 95, normal intervals, early R wave progression.) HPI <Fatemeh Givens MD - Last Filed: 01/03/23 01:50> General Date/Time Provider Initiated Documentation: 01/02/23 03:15. HPI Narrative: This 22-year-old female patient (trans, born male, identifies as female) presents after an intentional overdose of Benadryl. The patient took 17, 25 mg Benadryl tablets equal to 425 mg. She tells me that she took them to see if she would . She reports that she has many stressors in her life. She has a history of PTSD and bipolar illness. She is presently [place] [facility] They have no utilities. Patient states that she has no debt but also has no money. She is tearful in the ED and her only physical complaint is nausea. The patient did call 911 herself for assistance. She has seen counselors in the past but is not currently in therapy. Related Data Home Medications Medication Instructions Recorded Confirmed trazodone 50 mg tablet 50 mg PO DAILY #30 tab-caps 03/28/18 03/02/22 propranolol 20 mg tablet 20 mg PO Q3H PRN #90 tabs 05/06/18 03/02/22 estradiol 2 mg tablet 2 mg PO BID 06/29/21 01/02/23 lithium carbonate 300 mg 600 mg PO DAILY 06/29/21 03/02/22 tablet,extended release spironolactone 100 mg tablet 100 mg PO BID 06/29/21 01/02/23 fluvoxamine 50 mg tablet 125 mg PO BID 02/28/22 03/02/22 magnesium citrate 150 ml PO ONCE #296 mL 02/28/22 Previous Rx's Medication Instructions Recorded trazodone 50 mg tablet 50 mg PO DAILY #30 tab-caps 03/28/18 propranolol 20 mg tablet 20 mg PO Q3H PRN #90 tabs 05/06/18 magnesium citrate 150 ml PO ONCE #296 mL 02/28/22 Allergies Allergy/AdvReac Type Severity Reaction Status Date / Time egg yolk Allergy Intermediate VOMITING Verified 01/02/23 08:14 General Stated Complaint: Suicide-Atempt VICTOR HUGO: 2 Review of Systems <Fatemeh Givens MD - Last Filed: 01/03/23 01:50> Constitutional Constitutional: Denies chills, Denies fever(s), Denies headache(s) and Denies weakness Eyes Eyes: Denies diplopia and Reports other (no redness) ENT Ears, Nose, Mouth, and Throat: Denies otalgia, Denies headache(s), Denies nasal congestion, Denies nasal discharge, Denies neck pain and Denies sore throat Cardiovascular Cardiovascular: Denies chest pain, Denies palpitations and Denies dyspnea Respiratory Respiratory: Denies cough and Denies dyspnea Gastrointestinal Gastrointestinal: Denies abdominal pain, Denies diarrhea, Denies nausea and Denies vomiting Genitourinary Genitourinary: Denies difficulty urinating and Denies dysuria Musculoskeletal Musculoskeletal: Denies myalgias, Denies muscle weakness, Denies neck pain, Denies numbness and Reports other (edema) Integumentary/Breasts Skin/Breast: Denies change in pigmentation and Reports rash (Eczematous looking plaques scattered all over) Neurologic Neurologic: Denies headache(s), Denies numbness and Denies weakness Endocrine Endocrine: Denies palpitations PFSH <Fatemeh Givens MD - Last Filed: 01/03/23 01:50> All Active Problems (Updated 01/02/23 @ 14:15 by Ozzie Ellis MD) Contact dermatitis (Acute) Rash (Acute) Depression (Chronic 09/14/11) Anxiety (Chronic 09/14/11) Depression (Chronic) doing well on current meds [facility] brochure provided and discussed - encouraged pt to contact re financial/transportation issues re food insecurity - hand out provided/discussed re local resources Medical History (Updated 01/02/23 @ 14:15 by Ozzie Ellis MD) Anxiety Depression Insomnia Wears glasses Surgical History Tooth extraction extraction 4 wisdom teeth Family History Mother Mental disorder anxiety/depression Father Alcohol abuse Healthy adult Other Diabetes PGF Alcohol abuse MGF, MGM Essential hypertension PGF Bipolar disorder PGM Mental disorder Myocardial infarction PGF Social History Smoking/Tobacco Use Status: Never Smoking risk assessment performed?: Yes Alcohol Intake: never Drug use: Occasionally Substance use type: marijuana Details: Marajuana use for pain management Housing: house Do you feel safe at home: Yes (physically safe, detrimental to mental health) Do you feel safe in your relationship?: Yes Exam <Fatemeh Givens MD - Last Filed: 01/03/23 01:50> Const General: well developed Nutritional Appearance: average body habitus Orientation: alert, awake and oriented x3 Limitations: mental status not altered HENMT Head: normal to inspection, normocephalic and atraumatic Face and sinus: normal facial exam Mouth: oral mucosae normal Eyes Conjunctivae: conjunctivae normal Pupils: PERRL EOM: EOM intact bilaterally Neck Neck: full ROM and supple Chest Chest: normal inspection of the chest Resp Effort & Inspection: normal respiratory effort and able to speak in complete sentences Auscultation: clear to auscultation bilaterally Cardio Rate: tachycardic Rhythm: regular rhythm Heart Sounds: no murmurs and no rubs GI Inspection: normal to inspection Palpation: soft and nontender Auscultation: normal bowel sounds Back/Spine/Pelvis Back: other (AT) Skin General skin exam: dry skin Rashes: rashes noted (Scattered erythematous scaling plaques) Trauma: no lacerations or abrasions Neuro General: patient alert, patient awake and patient oriented x3 Cognition: normal cognition Speech: speech normal Gait: normal gait Motor: muscle tone normal throughout Sensory Exam: no sensory deficits noted Extrem General: full ROM Psych Appearance: disheveled Mental Status: mental status grossly normal Speech and Movement: speech and movement normal and speech not slurred Mood: dysthymic mood Affect: sad Attitude: cooperative Thought Process: loose association Insight: limited Judgment: limited Course <Fatemeh Givens MD - Last Filed: 01/03/23 01:50> Vital Signs Vital signs: Vital Signs Temperature 37.2 C 01/02/23 03:04 Pulse 106 H 01/02/23 03:04 Respiratory Rate 20 01/02/23 03:04 Blood Pressure 157/121 H 01/02/23 03:04 Pulse Oximetry 99 01/02/23 03:04 Temperature 37.2 C 01/02/23 03:04 Temperature Source Temporal Artery Scan 01/02/23 03:04 Pulse 106 H 01/02/23 03:04 Respiratory Rate 20 01/02/23 03:04 Blood Pressure 157/121 H 01/02/23 03:04 Blood Pressure Position Sitting 01/02/23 03:04 Pulse Oximetry 99 01/02/23 03:04 <Ozzie Ellis MD - Last Filed: 01/02/23 15:19> I received signout from my colleague from overnight at 8 AM. 11 AM patient medically cleared for mental health services. They were contacted he will be coming in to see the patient. Unremarkable morning. Patient stable 1450. The patient was seen by mental health services, [facility], the patient is contracted for safety. The patient will contact [facility] on daily basis for the next 5 days. The patient is already connected with mental health services. The patient will be discharged and will be staying at her mother's house. Sign Out <Fatemeh Givens MD - Last Filed: 01/03/23 01:50> Sign Out Data: Sign Out Comment: 22 yo trans woman with psych hx and sadness last night, intentional OD to see if she would . Psych eval at 1100. Last updated by Fatemeh Givens MD at 01/02/23 08:13
[2023-01-02 03:44] LABS: Abs Immature Grans 0.05 10^3/uL (0.0-0.06); Absolute Basophil Count 0.07 10^3/uL (0.0-0.2); Absolute Lymphocyte Count 1.86 10^3/uL (1.2-3.4); Absolute Monocyte Count 1.69 10^3/uL (0.1-0.8); Basophils % 0.5; Eosinophils % 7.6; HCT 42.4 % (40.0-50.0); HGB 15.1 g/dL (13.5-17.5); Immature Grans % 0.3; Lymphocytes % 12.7; MCH 31.3 pg (27.0-33.0); MCHC 35.6 % (32.0-36.0); MCV 88 fL (80-95); MPV 8.5 fL (8.0-11.0); Monocytes % 11.5; Neutrophils % 67.4; Platelet Count 284 10^3/uL (130-400); RBC 4.82 10^6/uL (4.36-5.78); RDW 11.2 % (11.8-14.1); RDW-SD 36.2 fL; WBC 14.68 10^3/uL (4.4-10.8)
[2023-01-02] MEDS: LORazepam 2 MG/ML VIAL 1 MG IVP (03:44)
[2023-01-02 03:54] LABS: Absolute Eosinophil Count 1.12 10^3/uL (0.0-0.7); Absolute Neutrophil Count 9.89 10^3/uL (1.2-6.7)
[2023-01-02 03:55] LABS: Diff Comment Agrees w/ Instrument; RBC Morphology Normal
[2023-01-02 04:26] LABS: Salicylate < 2.8 mg/dL (<2.8)
[2023-01-02 04:28] LABS: Acetaminophen < 2 ug/mL (10-30)
[2023-01-02 04:29] LABS: Lithium < 0.2 mmol/l (0.6-1.2)
[2023-01-02 04:52] LABS: ALT 17 U/L (16-63); AST 12 U/L (15-37); Albumin 4.2 g/dL (3.4-5.0); Alkaline Phosphatase 44 U/L (46-116); Anion Gap 10.1 mmol/L (3-11); BUN 18 mg/dL (7-18); Bilirubin, Total 0.6 mg/dL (0.2-1.0); CO2 26.9 mmol/L (21.0-32.0); Calcium 8.9 mg/dL (8.5-10.1); Chloride 98 mmol/L (98-107); Estimated GFR 107.78 (mL/min/1.73m2); Glucose 76 mg/dL (74-106); Magnesium 1.7 mg/dL (1.8-2.4); Potassium 3.3 mmol/L (3.5-5.1); Sodium 135 mmol/L (136-145); Total Protein 7.3 g/dL (6.4-8.2)
[2023-01-02 05:01] LABS: ETHANOL BLOOD < 3.0 mg/dL (<10)
[2023-01-02 08:20] LABS: Bilirubin Negative (Negative); Blood Negative (Negative); Clarity Clear (Clear); Glucose Negative (Negative); Ketones Negative (Negative); Leukocyte Esterase Negative (Negative); Nitrite Negative (Negative); Urobilinogen 0.2 mg/dL (Up to 0.2); pH 5.5 (5-8)
[2023-01-02 08:36] LABS: *AMPHETAMINES SCREEN URINE Negative (Negative); *BARBITURATES SCREEN URINE Negative (Negative); *BENZODIAZEPINES SCREEN URINE Negative (Negative); Cannabinoids THC Positive (Negative); Cocaine Screen,Urine Negative (Negative); METHADONE URINE SCREEN Negative (Negative); OPIATES URINE SCREEN Negative (Negative)
[2023-01-02 08:37] LABS: Tricyclic Antidepressants Positive (Negative)
--- NOTE | 2023-01-02 12:43 | NUR.NOTE ---
Nursing Note: Earth Moving Technician assumed care of patient at this time
--- NOTE | 2023-01-02 18:51 | PDOC.MHCN ---
Date of service: 01/02/23 Time of Service: 12:56 PHQ-9 Over the last 2 weeks, how often have you been bothered by any of the following problems? 1. Little interest or pleasure in doing things: several days 2. Feeling down, depressed, or hopeless: several days 3. Trouble falling or staying asleep, or sleeping too much: more than half the days 4. Feeling tired or having little energy: several days 5. Poor appetite or overeating: not at all 6. Feeling bad about yourself - or that you are a failure or have let yourself and your family down: several days 7. Trouble concentrating on things, such as reading the newspaper or watching television: several days 8. Moving or speaking so slowly that other people could have noticed? - Or the opposite - being so fidgety or restless that you have been moving around a lot more than usual: not at all 9. Thoughts that you would be better off or of hurting yourself in some way: several days Total score: 8 Source: Developed by Drs. Jabier Riley, Raisa Davies, Scar Berger and colleagues, with an educational evie from [employer]. Suicide Severity Rate CSSRS2 Have you been thinking about how you might do this?: Yes Have you had these thoughts and had some intention of acting on them?: Yes Have you started to work out or worked out the details of how to kill yourself? Do you intend to carry out this plan?: No CSSRS3 Have you ever done anything, started to do anything or prepared to do anything to end your life?: Yes Screening Score Total Score: 2 Screening: [facility] Emergency Note Release [facility] release signed:: No Reason for Visit suicidal attempt ubt called for help before it went to far In the last 2 weeks has the pt presented for ES prior to today?: No Client Information Client is: New Non Suicidal Self Injury Current: No History: No Safety Risk/Harm to Self or Others Current Ideation to Harm Self or Others: No Risk: Does risk to harm exist?: yes. Risk: Low Risk Duty to warn indicated: No Asssessment/Mental Status Appearance: Unremarkable Attitude: Cooperative Behavior: Unremarkable Speech: Normal Affect: Cogruent with mood Mood: Sad and Depressed Thought process: Circumstational Hallucinations: yes, Visual Delusions: No Attention: Unremarkable Perception: Not impaired Orientation: Fully orientated Memory: Intact Insight: Fair Judgement: Fair Neurovegetative Symptoms Sleep: Decrease Appetitie: No change Interests: Decrease Energy: No change Libido: Not applicable Substance Use: Other Drug Issues: Other Do you use nicotine?: No Have you used substances in the last 7 days?: yes, rarely Additional Issues: Assaultive/Threatening Behavior: No Medical Concerns: No Client engaged in active self harm w/weapon: No Threatening to run away: No Child reported abuse/neglect: No Voluntarily presenting for services: Yes Domestic violence is a concern: No Extreme Psychosis or extreme behavior is present: No Impression This client presents well. Tjhis client hjas alot of past trauma that she currently deals with and also some schizo affective type disorder that she does not seek therapy nor medication at this time but could indeed help her out. Plan/Disposition Recommended Disposition: Therapy. Plan: This cleint will go home with her ,mother and with a Safety Plan. she will also check in with ES daily at 10am for te next 5 days and has a referral for therapy Reports/communication Outcome discussed with: ED/Personnel
== END 2023-01-02 15:06 | disposition home or self-care (01) ==
PROVIDERS: Emergency Medicine; Emergency Provider Emergency Medicine; PCP Nurse Practitioner Family
DX: T14.91XA Suicide attempt, initial encounter (principal); F32.A Depression, unspecified; F31.9 Bipolar disorder, unspecified; T45.0X2A Poisoning by antiallergic and antiemetic drugs, intentional self-harm, initial encounter
CPT/HCPCS: 80053; 80307; 93005; 96374; 99285; 80178; 80320; 80329; 81003; 83735; 84443; 85025; 93010; J2060

== ENCOUNTER 2023-03-02 15:11 | Outpatient (REF) | payer MEDICAID, SELFPAY ==
[2023-03-02 19:07] LABS: Abs Immature Grans 0.02 10^3/uL (0.0-0.06); Absolute Basophil Count 0.04 10^3/uL (0.0-0.2); Absolute Eosinophil Count 0.39 10^3/uL (0.0-0.7); Absolute Lymphocyte Count 1.99 10^3/uL (1.2-3.4); Absolute Monocyte Count 0.59 10^3/uL (0.1-0.8); Absolute Neutrophil Count 5.31 10^3/uL (1.2-6.7); Basophils % 0.5; Eosinophils % 4.7; HCT 39.5 % (40.0-50.0); HGB 14.3 g/dL (13.5-17.5); Immature Grans % 0.2; Lymphocytes % 23.9; MCH 32.7 pg (27.0-33.0); MCHC 36.2 % (32.0-36.0); MCV 90 fL (80-95); MPV 10.5 fL (8.0-11.0); Monocytes % 7.1; Neutrophils % 63.6; Platelet Count 237 10^3/uL (130-400); RBC 4.37 10^6/uL (4.36-5.78); RDW 11.5 % (11.8-14.1); WBC 8.34 10^3/uL (4.4-10.8)
[2023-03-02 20:31] LABS: ALT 20 U/L (16-63); AST 11 U/L (15-37); Alkaline Phosphatase 32 U/L (46-116); BUN 18 mg/dL (7-18); Bilirubin, Total 0.5 mg/dL (0.2-1.0); CREATININE 0.5 mg/dL (0.70-1.30); Calcium 9.3 mg/dL (8.5-10.1); Chloride 102 mmol/L (98-107); Estimated GFR 146.07 (mL/min/1.73m2); Glucose 78 mg/dL (74-106); Potassium 4.5 mmol/L (3.5-5.1); Sodium 138 mmol/L (136-145); Total Protein 7.4 g/dL (6.4-8.2)
[2023-03-04 10:25] LABS: Hepatitis C Ab w Rflx HCV PCR Negative (Negative)
[2023-03-04 10:40] LABS: HIV-1/2 Ag & Ab Screen Negative (Negative)
[2023-03-04 11:33] LABS: Syphilis Serology (RPR) Negative (Negative)
== END 2023-03-02 15:12 | disposition home or self-care (01) ==
LOC: NCHCN 15:11
PROVIDERS: PCP Nurse Practitioner Family; Visit Provider Nurse Practitioner Family
DX: Z11.3 Encounter for screening for infections with a predominantly sexual mode of transmission (principal); Z11.4 Encounter for screening for human immunodeficiency virus [HIV]; Z11.59 Encounter for screening for other viral diseases; K13.0 Diseases of lips
CPT/HCPCS: 80053; 86803; 87389; 85025; 86592